=== PATIENT | male | born 1955 | race African-American/Black ===

== ENCOUNTER 2016-05-09 11:13 | Inpatient (IN) | payer OTHER ==
[2016-05-09 13:12] VITALS: BMI 27.4
--- NOTE | 2016-05-09 14:46 | HP ---
CIWA Score - CIWA Score Nausea/Vomitin Muscle Tremors: 3 Anxiety: 3 Agitation: 3 Paroxysmal Sweats: 1-Minimal Palms Moist Orientation: 0-Oriented Tacttile Disturbances: 2-Mild Itch/Numbness/Burn Auditory Disturbances: 2-Mild Harshness/Frighten Visual Disturbances: 2-Mild Sensitivity Headache: 2-Mild CIWA-Ar Total Score: 21 Admission ROS BHS - HPI Chief Complaint: i need help to stop drinking alcohol,cocaine and k2 Allergies/Adverse Reactions: Allergies Allergy/AdvReac Type Severity Reaction Status Date / Time No Known Allergies Allergy Verified 09/21/15 12:29 History of Present Illness: this 61 years old male with alcohol,cocaine and k2 dependence,withdrawal symptom ,last detox [facility] 09/17/15 t0 09/21/15 syncope alcohol dependence nicotine dependence hypertension depression ambulation with walker copd longest period of sobriety 2 years Exam Limitations: No Limitations - Ebola screening Have you traveled outside of the country in the last 21 days: No Have you been sick,other than usual withdrawal symptoms: No - Review of Systems Constitutional: Loss of Appetite, Malaise, Night Sweats, Changes in sleep, Weakness EENT: reports: No Symptoms Reported Respiratory: reports: No Symptoms reported, Other (copd) Cardiac: reports: No Symptoms Reported GI: reports: Nausea, Vomiting, Abdominal cramping : reports: No Symptoms Reported Musculoskeletal: reports: Back Pain, Muscle Pain Integumentary: reports: Dryness Neuro: reports: Headache, Tremors Endocrine: reports: No Symptoms Reported Hematology: reports: No Symptoms Reported Psychiatric: reports: Anxious, Depressed Patient History - Patient Medical History Hx Anemia: No Hx Asthma: Yes Hx Chronic Obstructive Pulmonary Disease (COPD): Yes (on albuteril inhaler) Hx Cancer: No Hx Cardiac Disorders: No Hx Hypertension: Yes (on med) Hx Hypercholesterolemia: No Hx Pacemaker: No HX Cerebrovascular Accident: No Hx Seizures: No Hx Diabetes: No Hx Gastrointestinal Disorders: No Hx Liver Disease: No Hx Genitourinary Disorders: No Hx Sexually Transmitted Disorders: Yes (1979 and completed tx) Hx Renal Disease (ESRD): No Hx Thyroid Disease: No Hx Human Immunodeficiency Virus (HIV): No (NEGATIVE HX last 2013 ) Hx Hepatitis C: No Hx Depression: Yes (on med) Hx Suicide Attempt: No Hx Bipolar Disorder: No Hx Schizophrenia: No Other Medical History: no suicidal,no homicidal,ambulation with walker - Patient Surgical History Past Surgical History: Yes Hx Neurologic Surgery: No Hx Cataract Extraction: No Hx Cardiac Surgery: No Hx Lung Surgery: No Hx Breast Surgery: No Hx Breast Biopsy: No Hx Abdominal Surgery: No Hx Appendectomy: No Hx Cholecystectomy: No Hx Genitourinary Surgery: No Hx Section: No Hx Orthopedic Surgery: Yes (right ankle surgery 1979) Anesthesia Reaction: No - PPD History Previous Implant?: Yes Documented Results: Positive w/o proof Results: CXR TBD PPD to be Administered?: No - Smoking Cessation Smoking history: Current every day smoker Have you smoked in the past 12 months: Yes Aproximately how many cigarettes per day: 6 Cigars Per Day: 0 Hx Chewing Tobacco Use: No Initiated information on smoking cessation: Yes 'Breaking Loose' booklet given: 05/09/16 - Substance & Tx. History Hx Alcohol Use: Yes Hx Substance Use: Yes Substance Use Type: Alcohol, Cocaine Hx Substance Use Treatment: Yes ([facility] 09/17/15 to 09/21/15) - Substances Abused Alcohol Route: Oral Frequency: Daily Amount used: Beer 1-pk, Vodka - 2 pts Age of first use: 9 Date of Last Use: 05/09/16 K-2 Frequency: Daily Amount used: 5-6 joints Age of first use: 58 Date of Last Use: 05/09/16 Cocaine Route: Smoking Frequency: 1-3 times last 30 days Amount used: 50$ Age of first use: 48 Date of Last Use: 05/07/16 Family Disease History - Family Disease History Family Disease History: Other: Father (alcohol,), Mother ( alcohol.) Admission Physical Exam [facility] - Vital Signs Vital Signs: Vital Signs - 24 hr 05/09/16 13:07 Temperature 97.5 F L Pulse Rate 89 Respiratory 18 Rate Blood Pressure 162/89 - Physical General Appearance: Yes: Moderate Distress, Tremorous, Irritable, Anxious HEENTM: Yes: Nasal Congestion Respiratory: Yes: Lungs Clear Neck: Yes: Within Normal Limits Breast: Yes: Within Normal Limits Cardiology: Yes: Within Normal Limits, Regular Rhythm, Regular Rate, S1, S2 Abdominal: Yes: Within Normal Limits, Normal Bowel Sounds, Non Tender, Flat, Soft Genitourinary: Yes: Within Normal Limits Back: Yes: Muscle Spasm Musculoskeletal: Yes: Back pain, Muscle Pain Extremities: Yes: Tremors Neurological: Yes: supervisor fabrication II-XII NML intact, Fully Oriented, Alert, Motor Strength 5/5 Integumentary: Yes: Dry Lymphatic: Yes: Within Normal Limits Cleared for Admission [facility] - Detox or Rehab [facility] Level of Care: Medically Managed Detox Regimen/Protocol: Librium [facility] Breath Alcohol Content Breath Alcohol Content: 0 Urine Drug Screen - Results Drug Screen Negative: No Urine Drug Screen Results: TABATHA-Cocaine
[2016-05-09] MEDS ORDERED: ALBUTEROL SO4 6.7 GM HFA INHALER IH PRN (15:11)
[2016-05-09] MEDS ORDERED: MAGNESIUM CITRATE 300 ML BOTTLE PO PRN (15:55)
[2016-05-09] MEDS ORDERED: hydrOXYzine PAMOATE 50 MG CAPSULE (FP) PO PRN (15:55)
[2016-05-09] MEDS ORDERED: ACETAMINOPHEN 325 MG TABLET (FP) PO PRN (15:55)
[2016-05-09] MEDS ORDERED: MENTHOL/PHENOL 1 EACH UD MM PRN (15:55)
[2016-05-09] MEDS ORDERED: MAG HYDROX/AL HYDROX/SIMETH 30 ML UNIT-DOSE CUP PO PRN (15:55)
[2016-05-09] MEDS ORDERED: chlordiazePOXIDE HCL 25 MG CAPSULE PO PRN (15:55)
[2016-05-09] MEDS ORDERED: MAGNESIUM HYDROX 2400MG/30ML ORAL SUSPENSION 30 ML CUP PO PRN (15:55)
[2016-05-09] MEDS ORDERED: P-EPHED 60MG/TRIPROLIDI 2.5MG TABLET PO PRN (15:55)
[2016-05-09] MEDS ORDERED: NICOTINE POLACRILEX 4 MG GUM BUC PRN (15:55)
[2016-05-09] MEDS ORDERED: LOPERAMIDE HCL 2 MG CAPSULE PO PRN (15:55)
[2016-05-09] MEDS ORDERED: chlordiazePOXIDE HCL 25 MG CAPSULE PO ONE (17:45)
[2016-05-09] MEDS: chlordiazePOXIDE HCL 25 MG CAPSULE PO SCH ×2 (18:13→22:44)
--- NOTE | 2016-05-09 18:48 | PN ---
S Progress Note Note: RECEIVED PHARMACY CALL PATIENT DOES NOT HAVE NIFEDIPINE OF HIS OWN CHANGE TO MILI'S NIFEDIPINE 60 MG CONTINUE DETOX
[2016-05-09] MEDS ORDERED: cloNIDine HCL 0.1 MG TABLET PO PRN (18:50)
[2016-05-09] MEDS: ATORVASTATIN CA 40 MG TABLET (FP) PO SCH (22:43)
[2016-05-09] MEDS: THIAMINE HCL 100 MG TABLET (FP) PO SCH (22:43)
[2016-05-09] MEDS: diphenhydrAMINE HCL 50 MG CAPSULE PO PRN (22:43)
--- NOTE | 2016-05-09 22:44 | PN ---
BHS Progress Note Note: RECEIVED NURSE CALL AMLODOPIN CAN NOT COEXIST WITH NIFEDIPINE HOLD AMLODOPIN BEGIN NIFEDIPINE
[2016-05-09 22:53] LABS: URINE APPEARANCE CLEAR; URINE BILIRUBIN NEGATIVE (NEGATIVE); URINE BLOOD NEGATIVE (NEGATIVE); URINE COLOR YELLOW; URINE GLUCOSE (UA) 1+ (NEGATIVE); URINE KETONE NEGATIVE (NEGATIVE); URINE LEUK ESTERASE NEGATIVE (NEGATIVE); URINE NITRITE NEGATIVE (NEGATIVE); URINE UROBILINOGEN NEGATIVE E.U./dl (0.2-1.0)
[2016-05-09 22:58] LABS: URINE PROTEIN 2+ (NEGATIVE)
[2016-05-09 23:00] LABS: URINE BACTERIA RARE /hpf (NONE SEEN); URINE HYALINE CAST 2 /lpf; URINE MUCUS RARE; URINE RBC 9 /hpf (0-3); URINE WBC 1 /hpf (3-5)
[2016-05-10] MEDS: chlordiazePOXIDE HCL 25 MG CAPSULE PO SCH ×4 (05:36→22:25)
[2016-05-10] MEDS ORDERED: NIFEdipine E.R 60 MG TABLET (UD) PO SCH (10:00)
[2016-05-10] MEDS ORDERED: PATIENT'S OWN MEDICATION (NON-FORMULARY) (Nifedipine [Nifedical Xl] 60 MG) PO SCH (10:00)
[2016-05-10] MEDS ORDERED: amLODIPine BESYLATE 10 MG TABLET (FP) PO SCH (10:00)
[2016-05-10] MEDS: HYDROCHLOROTHIAZIDE 25 MG TABLET (FP) PO SCH (10:41)
[2016-05-10] MEDS: PRENATAL VITAMINS W/ FOLIC ACID TABLET (FP) PO SCH (10:41)
[2016-05-10] MEDS: ASPIRIN 81 MG CHEWABLE TABLETS PO SCH (10:41)
[2016-05-10] MEDS: NICOTINE 21 MG/24 HOURS TOPICAL PATCH TD SCH (10:41)
[2016-05-10 10:52] LABS: MCH 24.6 pg (25.7-33.7); MCHC 31.1 g/dl (32.0-35.9); MEAN CELL VOLUME 79.2 fl (80-96); MEAN PLT VOLUME 10.7 fl (7.5-11.1); PLATELET COUNT 191 K/MM3 (134-434); RDW 16.2 % (11.9-15.9)
[2016-05-10 10:53] LABS: ALBUMIN 3.9 g/dl (3.4-5.0); CALCIUM 9.4 mg/dL (8.5-10.1); CREATININE 2.6 mg/dL (0.7-1.3)
[2016-05-10 10:54] LABS: BILIRUBIN,TOTAL 0.5 mg/dL (0.2-1.0); TOT PROT 8.4 g/dl (6.4-8.2)
--- NOTE | 2016-05-10 11:16 | CONSULT ---
[facility] Psychiatric Consult - Data Date of interview: 05/10/16 Admission source: [facility] Identifying data: New admission to [facility] for this 61 y/o AA male seeking detox treatment on for alcohol,cocaine (crack) and marijuana (K2) dependence.Patient is single,a father of two,homeless,unemployed and supported on Public Assistance. Substance Abuse History: - Smoking Cessation. Smoking history: Current every day smoker. Have you smoked in the past 12 months: Yes. Aproximately how many cigarettes per day: 6. Cigars Per Day: 0. Hx Chewing Tobacco Use: No. Initiated information on smoking cessation: Yes. 'Breaking Loose' booklet given : 05/09/16. - Substance & Tx. History. Hx Alcohol Use: Yes. Hx Substance Use : Yes. Substance Use Type: Alcohol, Cocaine. Hx Substance Use Treatment: Yes ( [facility] 09/17/15 to 09/21/15). - Substances Abused. Alcohol. Route: Oral. Frequency: Daily. Amount used: Beer 1-pk, Vodka - 2 pts. Age of first use: 9. Date of Last Use: 05/09/16. K-2. Frequency: Daily. Amount used: 5-6 joints. Age of first use: 58. Date of Last Use: 05/09/16. Cocaine. Route : Smoking. Frequency: 1-3 times last 30 days. Amount used: 50$. Age of first use: 48. Date of Last Use: 05/07/16. Discussed in this session.Patient confirms this pattern of substance abuse. Medical History: Bronchial asthma,HTN,COPD,past history of fracture of right ankle/injury to left knee (uses a rollator for ambulation) and treatment for syphilis (1979). Psychiatric History: Patient denies history of psychiatric hospitalizations.He reports past treatment with antidepressants (citalopram/trazodone) and he endorses the diagnosis of MDD.Mr Mayorga states that he does not see a psychiatrist as he has elected to rely on his primary care physician for refills of medications.He was discharged from [address] rehabilitation unit in October 2015 on trazodone 1000 mg/hs but it appears that the patient did not follow through with his aftercare arrangements.No reported history of suicide attempts. Physical/Sexual Abuse/Trauma History: Patient denies. Additional Comment: Urine Drug Screen Results: TABATHA-Cocaine.Noted. Mental Status Exam - Mental Status Exam Alert and Oriented to: Time, Place, Person Cognitive Function: Grossly Intact Patient Appearance: Well Groomed Mood: Withdrawn, Anxious Affect: Mood Congruent Patient Behavior: Fatigued, Talkative, Appropriate, Cooperative Speech Pattern: Clear Voice Loudness: Normal Thought Process: Goal Oriented Thought Disorder: Not Present Hallucinations: Denies Suicidal Ideation: Denies Homicidal Ideation: Denies Insight/Judgement: Poor Sleep: Poorly, Difficulty falling asleep Appetite: Fair Gait/Station: Other (moves around with a rollator) Psychiatric Findings - Problem List ([place] 1, 2,3) (1) Alcohol dependence with uncomplicated withdrawal Current Visit: Yes Status: Acute (2) Cannabis dependence Current Visit: Yes Status: Acute (3) Nicotine dependence Current Visit: Yes Status: Acute Qualifiers: Nicotine product type: cigarettes Substance use status: uncomplicated Qualified Code(s): F17.210 - Nicotine dependence, cigarettes, uncomplicated (4) Cocaine dependence Current Visit: Yes Status: Acute (5) Substance induced mood disorder Current Visit: Yes Status: Acute (6) Substance-induced sleep disorder Current Visit: Yes Status: Acute (7) Depressive disorder Current Visit: Yes Status: Chronic (8) Positive PPD, treated Current Visit: Yes Status: Chronic (9) Asthma Current Visit: Yes Status: Chronic Qualifiers: Asthma severity: mild intermittent Asthma complication type: uncomplicated Qualified Code(s): J45.20 - Mild intermittent asthma, uncomplicated (10) COPD (chronic obstructive pulmonary disease) Current Visit: Yes Status: Chronic Qualifiers: COPD type: emphysema (11) HTN (hypertension) Current Visit: Yes Status: Chronic Qualifiers: Hypertension type: essential hypertension Qualified Code(s): I10 - Essential (primary) hypertension - Initial Treatment Plan Initial Treatment Plan: Psychoeducation.Detoxification.Medications : trazodone 50 mg po hs.Side effects/benefits discussed with the patient.He is made aware of the risk of priapism and he is instructed to stop taking that drug/seek immediate medical attention if occurrence of erectile abnormalities (painful/ prolonged erection).Patient aknowledges understanding of information and he agrees to follow this plan of care.Observation.Fall precautions.
--- NOTE | 2016-05-10 12:00 | PN ---
S CIWA - CIWA Score Nausea/Vomitin Muscle Tremors: 4-Moderate,w/Arms Extend Anxiety: 4-Mod. Anxious/Guarded Agitation: 4-Moderately Restless Paroxysmal Sweats: 3 Orientation: 0-Oriented Tacttile Disturbances: 1-Very Mild Itch/Numbness Auditory Disturbances: 0-None Visual Disturbances: 0-None Headache: 1-Very Mild CIWA-Ar Total Score: 20 BHS Progress Note (SOAP) Subjective: nausea, sweats, interrupted sleep, anxiety, tremors Objective: 05/10/16 11:59 Vital Signs - 8 hr 05/10/16 06:44 Temperature 96.9 F L Pulse Rate 80 Respiratory 18 Rate Blood Pressure 177/111 Vital Signs - 24 hr 05/09/16 05/09/16 05/10/16 13:07 23:16 00:30 Temperature 97.5 F L 97.7 F Pulse Rate 89 84 Respiratory 18 18 20 Rate Blood Pressure 162/89 157/111 05/10/16 05/10/16 03:30 06:44 Temperature 96.9 F L Pulse Rate 80 Respiratory 20 18 Rate Blood Pressure 177/111 elevated bp Laboratory Tests 05/09/16 05/10/16 05/10/16 22:02 06:00 06:00 WBC 10.0 D RBC 5.31 Hgb 13.1 D Hct 42.0 MCV 79.2 L MCHC 31.1 L RDW 16.2 H Plt Count 191 MPV 10.7 D Sodium 140 Potassium 3.6 Chloride 102 Carbon Dioxide 27 Anion Gap 11 BUN 33 H Creatinine 2.6 H D Creat Clearance w eGFR 25.14 Random Glucose 138 H D Calcium 9.4 Total Bilirubin 0.5 D AST 19 ALT 20 D Alkaline Phosphatase 103 Total Protein 8.4 H D Albumin 3.9 D Urine Color Yellow Urine Appearance Clear Urine pH 6.0 Ur Specific [place] 1.020 Urine Protein 2+ H Urine Glucose (UA) 1+ H Urine Ketones Negative Urine Blood Negative Urine Nitrite Negative Urine Bilirubin Negative Urine Urobilinogen Negative Ur Leukocyte Esterase Negative Urine RBC 9 Urine WBC 1 Ur Epithelial Cells Rare Urine Bacteria Rare Hyaline Casts 2 Urine Mucus Rare Assessment: 05/10/16 11:59 withdrawal sx, hypertension Plan: cont detox, prn libirum, low salt diet lfuids, start antihypertensives to better control bp
[2016-05-10] MEDS ORDERED: cloNIDine HCL 0.1 MG TABLET PO ONE (12:02)
[2016-05-10] MEDS ORDERED: chlordiazePOXIDE HCL 25 MG CAPSULE PO ONE (13:00)
[2016-05-10] MEDS ORDERED: cloNIDine HCL 0.1 MG TABLET ONE (14:26)
[2016-05-10] MEDS: NIFEdipine E.R 60 MG TABLET (UD) PO SCH (14:36)
--- NOTE | 2016-05-10 18:46 | EKG ---
Test Reason : Blood Pressure : / mmHG Vent. Rate : 087 BPM Atrial Rate : 087 BPM P-R Int : 168 ms QRS Dur : 112 ms QT Int : 398 ms P-R-T Axes : 072 -69 -33 degrees QTc Int : 478 ms POOR DATA QUALITY, INTERPRETATION MAY BE ADVERSELY AFFECTED NORMAL SINUS RHYTHM LEFT AXIS DEVIATION NON-SPECIFIC INTRA-VENTRICULAR CONDUCTION DELAY ANTEROSEPTAL INFARCT , AGE UNDETERMINED NONSPECIFIC ST AND T WAVE ABNORMALITY ABNORMAL ECG NO PREVIOUS ECGS AVAILABLE Confirmed by LAURA MILLER, ADI ([id number]) on 05/10/2016 6:46:01 PM Referred By: Gregorio Nunez Confirmed By:ADI SANCHEZ MD
[2016-05-10] MEDS: THIAMINE HCL 100 MG TABLET (FP) PO SCH (22:25)
[2016-05-10] MEDS: traZODone HCL 50 MG TABLET (FP) PO SCH (22:25)
[2016-05-10] MEDS: ATORVASTATIN CA 40 MG TABLET (FP) PO SCH (22:25)
[2016-05-11] MEDS: chlordiazePOXIDE HCL 25 MG CAPSULE PO SCH ×3 (06:00→10:28)
[2016-05-11] MEDS: IBUPROFEN 400 MG TABLET (FP) PO PRN (06:45)
[2016-05-11] MEDS: ASPIRIN 81 MG CHEWABLE TABLETS PO SCH (10:27)
[2016-05-11] MEDS: HYDROCHLOROTHIAZIDE 25 MG TABLET (FP) PO SCH (10:27)
[2016-05-11] MEDS: NIFEdipine E.R 60 MG TABLET (UD) PO SCH (10:28)
[2016-05-11] MEDS: NICOTINE 21 MG/24 HOURS TOPICAL PATCH TD SCH (10:28)
[2016-05-11] MEDS: PRENATAL VITAMINS W/ FOLIC ACID TABLET (FP) PO SCH (10:28)
--- NOTE | 2016-05-11 15:30 | PN ---
S CIWA - CIWA Score Nausea/Vomitin-Mild Nausea/No Vomiting Muscle Tremors: 3 Anxiety: 4-Mod. Anxious/Guarded Agitation: 4-Moderately Restless Paroxysmal Sweats: No Perspiration Orientation: 0-Oriented Tacttile Disturbances: 1-Very Mild Itch/Numbness Auditory Disturbances: 0-None Visual Disturbances: 0-None Headache: 2-Mild CIWA-Ar Total Score: 15 BHS Progress Note (SOAP) Subjective: Stomach cramps, diarrhea, nausea, sweating, anxious, interrupted sleep, tremor Objective: 05/11/16 15:27 Last Vital Signs Temp Pulse Resp BP Pulse Ox 96.1 F L 84 18 133/98 05/11/16 09:43 05/11/16 09:43 05/11/16 09:43 05/11/16 09:43 Laboratory Tests 05/09/16 05/10/16 05/10/16 22:02 06:00 06:00 WBC 10.0 D RBC 5.31 Hgb 13.1 D Hct 42.0 MCV 79.2 L MCHC 31.1 L RDW 16.2 H Plt Count 191 MPV 10.7 D Sodium 140 Potassium 3.6 Chloride 102 Carbon Dioxide 27 Anion Gap 11 BUN 33 H Creatinine 2.6 H D Creat Clearance w eGFR 25.14 Random Glucose 138 H D Calcium 9.4 Total Bilirubin 0.5 D AST 19 ALT 20 D Alkaline Phosphatase 103 Total Protein 8.4 H D Albumin 3.9 D Urine Color Yellow Urine Appearance Clear Urine pH 6.0 Ur Specific [place] 1.020 Urine Protein 2+ H Urine Glucose (UA) 1+ H Urine Ketones Negative Urine Blood Negative Urine Nitrite Negative Urine Bilirubin Negative Urine Urobilinogen Negative Ur Leukocyte Esterase Negative Urine RBC 9 Urine WBC 1 Ur Epithelial Cells Rare Urine Bacteria Rare Hyaline Casts 2 Urine Mucus Rare RPR Titer 05/10/16 06:00 WBC RBC Hgb Hct MCV MCHC RDW Plt Count MPV Sodium Potassium Chloride Carbon Dioxide Anion Gap BUN Creatinine Creat Clearance w eGFR Random Glucose Calcium Total Bilirubin AST ALT Alkaline Phosphatase Total Protein Albumin Urine Color Urine Appearance Urine pH Ur Specific [place] Urine Protein Urine Glucose (UA) Urine Ketones Urine Blood Urine Nitrite Urine Bilirubin Urine Urobilinogen Ur Leukocyte Esterase Urine RBC Urine WBC Ur Epithelial Cells Urine Bacteria Hyaline Casts Urine Mucus RPR Titer Nonreactive Labs noted: Abnormal UA (1+ Glucose and 2+ protein) Assessment: 05/11/16 15:29 Withdrawal symptoms Noted with Glycosuria and proteinuria Plan: Continue detox Glycosuria: encouraged to drink more water, repeat BMP and UA, consider finger stick glucose ac meal and initiate oral antidiabetic if warranted Proteinuria: encouraged to drink more water, repeat UA
[2016-05-11] MEDS: chlordiazePOXIDE 5 MG CAPSULE PO SCH ×2 (17:21→22:38)
[2016-05-11] MEDS: traZODone HCL 50 MG TABLET (FP) PO SCH (22:38)
[2016-05-11] MEDS: THIAMINE HCL 100 MG TABLET (FP) PO SCH (22:38)
[2016-05-11] MEDS: ATORVASTATIN CA 40 MG TABLET (FP) PO SCH (22:38)
[2016-05-12] MEDS: IBUPROFEN 400 MG TABLET (FP) PO PRN (05:48)
[2016-05-12] MEDS: chlordiazePOXIDE 5 MG CAPSULE PO SCH ×2 (05:49→10:21)
[2016-05-12] MEDS: guaiFENesin/D-METHORPHAN HB 10 ML UNIT-DOSE CUPS PO PRN (05:51)
[2016-05-12 10:15] LABS: CREATININE 2.9 mg/dL (0.7-1.3)
[2016-05-12] MEDS: HYDROCHLOROTHIAZIDE 25 MG TABLET (FP) PO SCH (10:21)
[2016-05-12] MEDS: NIFEdipine E.R 60 MG TABLET (UD) PO SCH (10:21)
[2016-05-12] MEDS: ASPIRIN 81 MG CHEWABLE TABLETS PO SCH (10:21)
[2016-05-12] MEDS: PRENATAL VITAMINS W/ FOLIC ACID TABLET (FP) PO SCH (10:22)
[2016-05-12] MEDS: NICOTINE 21 MG/24 HOURS TOPICAL PATCH TD SCH (10:22)
--- NOTE | 2016-05-12 11:32 | PN ---
BHS Progress Note (SOAP) Subjective: TREMORS, ANXIETY,SWEATS, DECREASED NAUSEA. Objective: 05/12/16 11:31 Vital Signs Temperature 96.1 F L 05/12/16 10:58 Pulse Rate 75 05/12/16 10:58 Respiratory Rate 18 05/12/16 10:58 Blood Pressure 136/92 05/12/16 10:58 O2 Sat by Pulse Oximetry (%) Laboratory Last Values WBC 10.0 K/mm3 (4.0-10.0) D 05/10/16 06:00 RBC 5.31 M/mm3 (4.00-5.60) 05/10/16 06:00 Hgb 13.1 GM/dL (11.7-16.9) D 05/10/16 06:00 Hct 42.0 % (35.4-49) 05/10/16 06:00 MCV 79.2 fl (80-96) L 05/10/16 06:00 MCHC 31.1 g/dl (32.0-35.9) L 05/10/16 06:00 RDW 16.2 % (11.9-15.9) H 05/10/16 06:00 Plt Count 191 K/MM3 (134-434) 05/10/16 06:00 MPV 10.7 fl (7.5-11.1) D 05/10/16 06:00 Sodium 137 mmol/L (136-145) 05/12/16 07:00 Potassium 3.8 mmol/L (3.5-5.1) 05/12/16 07:00 Chloride 97 mmol/L (98-107) L 05/12/16 07:00 Carbon Dioxide 29 mmol/L (21-32) 05/12/16 07:00 Anion Gap 11 (8-16) 05/12/16 07:00 BUN 38 mg/dL (7-18) H 05/12/16 07:00 Creatinine 2.9 mg/dL (0.7-1.3) H 05/12/16 07:00 Creat Clearance w eGFR 25.14 (>60) 05/10/16 06:00 Random Glucose 146 mg/dL (74-106) H 05/12/16 07:00 Hemoglobin A1c % 6.0 % (4.8-6.0) 05/12/16 07:00 Calcium 9.0 mg/dL (8.5-10.1) 05/12/16 07:00 Total Bilirubin 0.5 mg/dL (0.2-1.0) D 05/10/16 06:00 AST 19 U/L (15-37) 05/10/16 06:00 ALT 20 U/L (12-78) D 05/10/16 06:00 Alkaline Phosphatase 103 U/L (45-117) 05/10/16 06:00 Total Protein 8.4 g/dl (6.4-8.2) H D 05/10/16 06:00 Albumin 3.9 g/dl (3.4-5.0) D 05/10/16 06:00 Urine Color Yellow 05/09/16 22:02 Urine Appearance Clear 05/09/16 22:02 Urine pH 6.0 (5.0-8.0) 05/09/16 22:02 Ur Specific [place] 1.020 (1.001-1.035) 05/09/16 22:02 Urine Protein 2+ (NEGATIVE) H 05/09/16 22:02 Urine Glucose (UA) 1+ (NEGATIVE) H 05/09/16 22:02 Urine Ketones Negative (NEGATIVE) 05/09/16 22:02 Urine Blood Negative (NEGATIVE) 05/09/16 22:02 Urine Nitrite Negative (NEGATIVE) 05/09/16 22:02 Urine Bilirubin Negative (NEGATIVE) 05/09/16 22:02 Urine Urobilinogen Negative E.U./dl (0.2-1.0) 05/09/16 22:02 Ur Leukocyte Esterase Negative (NEGATIVE) 05/09/16 22:02 Urine RBC 9 /hpf (0-3) 05/09/16 22:02 Urine WBC 1 /hpf (3-5) 05/09/16 22:02 Ur Epithelial Cells Rare /hpf (FEW) 05/09/16 22:02 Urine Bacteria Rare /hpf (NONE SEEN) 05/09/16 22:02 Hyaline Casts 2 /lpf 05/09/16 22:02 Urine Mucus Rare 05/09/16 22:02 RPR Titer Nonreactive (NONREACTIVE) 05/10/16 06:00 Assessment: 05/12/16 11:31 WITHDRAWAL SX Plan: CONTINUE DETOX
--- NOTE | 2016-05-12 15:50 | PN ---
S Progress Note Note: CALLED TO SEE THIS PT FOR C/O FALL. PT IN REST AREA NEAR DAY ROOM WATCHING TV. PT STATES "I WAS JUST REACHING OUT FOR SALT PACKAGE ON THE FLOOR AND I SLIPPED OUT THE CHAIR ON MY RIGHT SIDE". PT DENIES ANY PAIN OR INJURY. ALERT O X 3. IN NO ACUTE DISTRESS. Vital Signs Temperature 96.6 F L 05/12/16 13:33 Pulse Rate 71 05/12/16 13:33 Respiratory Rate 18 05/12/16 13:33 Blood Pressure 125/81 05/12/16 13:33 O2 Sat by Pulse Oximetry (%) PLAN: FALL PROTOCOL #2
[2016-05-12 17:16] LABS: URINE APPEARANCE CLEAR; URINE BILIRUBIN NEGATIVE (NEGATIVE); URINE BLOOD NEGATIVE (NEGATIVE); URINE COLOR YELLOW; URINE GLUCOSE (UA) NEGATIVE (NEGATIVE); URINE KETONE NEGATIVE (NEGATIVE); URINE LEUK ESTERASE NEGATIVE (NEGATIVE); URINE NITRITE NEGATIVE (NEGATIVE); URINE UROBILINOGEN NEGATIVE E.U./dl (0.2-1.0)
[2016-05-12 17:21] LABS: URINE PROTEIN 1+ (NEGATIVE)
[2016-05-12] MEDS: chlordiazePOXIDE HCL 10 MG CAPSULE PO SCH ×2 (17:21→22:31)
[2016-05-12 18:16] LABS: URINE HYALINE CAST 9 /lpf; URINE MUCUS RARE; URINE RBC 1 /hpf (0-3); URINE WBC 1 /hpf (3-5)
[2016-05-12] MEDS: traZODone HCL 50 MG TABLET (FP) PO SCH (22:30)
[2016-05-12] MEDS: THIAMINE HCL 100 MG TABLET (FP) PO SCH (22:30)
[2016-05-12] MEDS: ATORVASTATIN CA 40 MG TABLET (FP) PO SCH (22:31)
[2016-05-12] MEDS: diphenhydrAMINE HCL 50 MG CAPSULE PO PRN (22:32)
[2016-05-13] MEDS: chlordiazePOXIDE HCL 10 MG CAPSULE PO SCH ×2 (05:41→10:19)
[2016-05-13] MEDS: guaiFENesin/D-METHORPHAN HB 10 ML UNIT-DOSE CUPS PO PRN (06:35)
[2016-05-13] MEDS: HYDROCHLOROTHIAZIDE 25 MG TABLET (FP) PO SCH (10:17)
[2016-05-13] MEDS: NIFEdipine E.R 60 MG TABLET (UD) PO SCH (10:17)
[2016-05-13] MEDS: ASPIRIN 81 MG CHEWABLE TABLETS PO SCH (10:17)
[2016-05-13] MEDS: PRENATAL VITAMINS W/ FOLIC ACID TABLET (FP) PO SCH (10:17)
[2016-05-13] MEDS: NICOTINE 21 MG/24 HOURS TOPICAL PATCH TD SCH (10:18)
[2016-05-13 10:40] VITALS: PULSE 73
--- NOTE | 2016-05-13 11:21 | DS ---
[facility] Detox Discharge Summary Admission Date: 05/09/16 Discharge Date: 05/13/16 - History Present History: Alcohol Dependence, Cannabis Dependence, Cocaine Dependence Additional Comments: DETOX COMPLETED. PT INSTRUCTED TO FOLLOW UP WITH HIS PMD AT [facility] FOR MEDICAL MANAGEMENT OF HIS COMORBID CONDITIONS. STATES HAS HIS OWN MEDS. Pertinent Past History: ASTHMA HTN HYPERLIPIDEMIA COPD USE OF WALKER AMBULATORY AID DEPRESSION - Physical Exam Results Vital Signs: Vital Signs Temperature 96.7 F L 05/13/16 10:39 Pulse Rate 73 05/13/16 10:39 Respiratory Rate 18 05/13/16 10:39 Blood Pressure 142/91 05/13/16 10:39 O2 Sat by Pulse Oximetry (%) Pertinent Admission Physical Exam Findings: WITHDRAWAL SX Laboratory Last Values WBC 10.0 K/mm3 (4.0-10.0) D 05/10/16 06:00 RBC 5.31 M/mm3 (4.00-5.60) 05/10/16 06:00 Hgb 13.1 GM/dL (11.7-16.9) D 05/10/16 06:00 Hct 42.0 % (35.4-49) 05/10/16 06:00 MCV 79.2 fl (80-96) L 05/10/16 06:00 MCHC 31.1 g/dl (32.0-35.9) L 05/10/16 06:00 RDW 16.2 % (11.9-15.9) H 05/10/16 06:00 Plt Count 191 K/MM3 (134-434) 05/10/16 06:00 MPV 10.7 fl (7.5-11.1) D 05/10/16 06:00 Sodium 137 mmol/L (136-145) 05/12/16 07:00 Potassium 3.8 mmol/L (3.5-5.1) 05/12/16 07:00 Chloride 97 mmol/L (98-107) L 05/12/16 07:00 Carbon Dioxide 29 mmol/L (21-32) 05/12/16 07:00 Anion Gap 11 (8-16) 05/12/16 07:00 BUN 38 mg/dL (7-18) H 05/12/16 07:00 Creatinine 2.9 mg/dL (0.7-1.3) H 05/12/16 07:00 Creat Clearance w eGFR 25.14 (>60) 05/10/16 06:00 Random Glucose 146 mg/dL (74-106) H 05/12/16 07:00 Hemoglobin A1c % 6.0 % (4.8-6.0) 05/12/16 07:00 Calcium 9.0 mg/dL (8.5-10.1) 05/12/16 07:00 Total Bilirubin 0.5 mg/dL (0.2-1.0) D 05/10/16 06:00 AST 19 U/L (15-37) 05/10/16 06:00 ALT 20 U/L (12-78) D 05/10/16 06:00 Alkaline Phosphatase 103 U/L (45-117) 05/10/16 06:00 Total Protein 8.4 g/dl (6.4-8.2) H D 05/10/16 06:00 Albumin 3.9 g/dl (3.4-5.0) D 05/10/16 06:00 Urine Color Yellow 05/12/16 14:32 Urine Appearance Clear 05/12/16 14:32 Urine pH 5.0 (5.0-8.0) 05/12/16 14:32 Ur Specific [place] 1.020 (1.001-1.035) 05/12/16 14:32 Urine Protein 1+ (NEGATIVE) H 05/12/16 14:32 Urine Glucose (UA) Negative (NEGATIVE) 05/12/16 14:32 Urine Ketones Negative (NEGATIVE) 05/12/16 14:32 Urine Blood Negative (NEGATIVE) 05/12/16 14:32 Urine Nitrite Negative (NEGATIVE) 05/12/16 14:32 Urine Bilirubin Negative (NEGATIVE) 05/12/16 14:32 Urine Urobilinogen Negative E.U./dl (0.2-1.0) 05/12/16 14:32 Ur Leukocyte Esterase Negative (NEGATIVE) 05/12/16 14:32 Urine RBC 1 /hpf (0-3) 05/12/16 14:32 Urine WBC 1 /hpf (3-5) 05/12/16 14:32 Ur Epithelial Cells Rare /hpf (FEW) 05/12/16 14:32 Urine Bacteria Rare /hpf (NONE SEEN) 05/09/16 22:02 Hyaline Casts 9 /lpf 05/12/16 14:32 Urine Mucus Rare 05/12/16 14:32 RPR Titer Nonreactive (NONREACTIVE) 05/10/16 06:00 - Treatment Hospital Course: Detox Protocol Followed, Detoxed Safely, Responded well, Discharged Condition Good - Medication Discharge Medications: Ambulatory Orders Albuterol Sulfate Inhaler - [Ventolin HFA Inhaler -] 2 inh PO Q4H PRN #1 inh 10/17 Amlodipine Besylate [Norvasc -] 10 mg PO DAILY #30 tablet 09/10/13 Hydrochlorothiazide [Hctz -] 25 mg PO DAILY #30 tablet 09/10/13 Trazodone HCl [Desyrel -] 100 mg PO HS #30 tablet 10/12/15 Aspirin [ASA -] 81 mg PO DAILY 05/09/16 Atorvastatin Ca [Lipitor] 40 mg PO HS 05/09/16 Folic Acid - 1 mg PO DAILY 05/09/16 Mirtazapine [Remeron -] 15 mg PO HS 05/09/16 Nifedipine [Nifedical Xl] 60 mg PO DAILY 05/09/16 Thiamine HCl [Vitamin B-1] 50 mg PO DAILY 05/09/16 Trazodone HCl [Desyrel -] 50 mg PO HS #30 tablet 05/10/16 - Diagnosis (1) Alcohol dependence with uncomplicated withdrawal Current Visit: Yes Status: Acute (2) Nicotine dependence Current Visit: Yes Status: Chronic Qualifiers: Nicotine product type: cigarettes Substance use status: uncomplicated Qualified Code(s): F17.210 - Nicotine dependence, cigarettes, uncomplicated (3) Asthma Current Visit: Yes Status: Chronic Qualifiers: Asthma severity: mild intermittent Asthma complication type: uncomplicated Qualified Code(s): J45.20 - Mild intermittent asthma, uncomplicated (4) COPD (chronic obstructive pulmonary disease) Current Visit: Yes Status: Chronic Qualifiers: COPD type: emphysema (5) HTN (hypertension) Current Visit: Yes Status: Chronic Qualifiers: Hypertension type: essential hypertension Qualified Code(s): I10 - Essential (primary) hypertension (6) Cocaine dependence Current Visit: Yes Status: Acute Qualifiers: Substance use status: uncomplicated Qualified Code(s): F14.20 - Cocaine dependence, uncomplicated (7) Substance induced mood disorder Current Visit: Yes Status: Acute (8) Substance-induced sleep disorder Current Visit: Yes Status: Acute - AMA Did Patient Leave Against Medical Advice: No
[2016-05-13 12:05] VITALS: BP 157/100; TEMP 98.1
== END 2016-05-13 14:10 | disposition home or self-care (01) | DRG 774 ==
LOC: YASAS 11:13 → Y3N 15:38
PROVIDERS: ADMIT Internal Medicine; ATTEND Internal Medicine
PROC: HZ2ZZZZ Detoxification Services for Substance Abuse Treatment (ICD-10-PCS; principal; 2016-05-13)
DX: F10.230 Alcohol dependence with withdrawal, uncomplicated (principal); F14.20 Cocaine dependence, uncomplicated; F17.210 Nicotine dependence, cigarettes, uncomplicated; F19.282 Other psychoactive substance dependence with psychoactive substance-induced sleep disorder; F32.9 Major depressive disorder, single episode, unspecified; I10 Essential (primary) hypertension; J45.20 Mild intermittent asthma, uncomplicated; J44.9 Chronic obstructive pulmonary disease, unspecified; R76.11 Nonspecific reaction to tuberculin skin test without active tuberculosis; F19.24 Other psychoactive substance dependence with psychoactive substance-induced mood disorder
CPT/HCPCS: 36415; 80048; 80053; 81003; 81015; 83036; 85027; 86593; 93005; 93010

== ENCOUNTER 2016-09-02 15:37 | Inpatient (IN) | payer OTHER ==
[2016-09-02 17:37] VITALS: BMI 26.7
[2016-09-02] MEDS ORDERED: MAG HYDROX/AL HYDROX/SIMETH 30 ML UNIT-DOSE CUP PO PRN (19:50)
[2016-09-02] MEDS ORDERED: MENTHOL/PHENOL 1 EACH UD MM PRN (19:50)
[2016-09-02] MEDS ORDERED: NICOTINE POLACRILEX 2 MG GUM BC PRN (19:50)
[2016-09-02] MEDS ORDERED: LOPERAMIDE HCL 2 MG CAPSULE PO PRN (19:50)
[2016-09-02] MEDS ORDERED: guaiFENesin/D-METHORPHAN HB 10 ML UNIT-DOSE CUPS PO PRN (19:50)
[2016-09-02] MEDS ORDERED: chlordiazePOXIDE HCL 25 MG CAPSULE PO PRN (19:50)
[2016-09-02] MEDS ORDERED: hydrOXYzine PAMOATE 50 MG CAPSULE (FP) PO PRN (19:50)
[2016-09-02] MEDS ORDERED: MAGNESIUM CITRATE 300 ML BOTTLE PO PRN (19:50)
[2016-09-02] MEDS ORDERED: diphenhydrAMINE HCL 50 MG CAPSULE PO PRN (19:50)
[2016-09-02] MEDS ORDERED: MAGNESIUM HYDROX 2400MG/30ML ORAL SUSPENSION 30 ML CUP PO PRN (19:50)
[2016-09-02] MEDS ORDERED: P-EPHED 60MG/TRIPROLIDI 2.5MG TABLET PO PRN (19:50)
--- NOTE | 2016-09-02 19:50 | HP ---
CIWA Score - CIWA Score Nausea/Vomitin-Mild Nausea/No Vomiting Muscle Tremors: 4-Moderate,w/Arms Extend Anxiety: 4-Mod. Anxious/Guarded Agitation: 4-Moderately Restless Paroxysmal Sweats: 1-Minimal Palms Moist Orientation: 3-Disoriented Date>2 days Tacttile Disturbances: 0-None Auditory Disturbances: 0-None Visual Disturbances: 0-None Headache: 0-None Present CIWA-Ar Total Score: 17 Admission ROS S - HPI Chief Complaint: WITHDRAWAL SX Allergies/Adverse Reactions: Allergies Allergy/AdvReac Type Severity Reaction Status Date / Time No Known Allergies Allergy Verified 09/02/16 19:04 History of Present Illness: 61 YEARS OLD MALE WITH LONG HISTORY OF ALCOHOL PCP NICOTINE DEPENDENCE HAS HYPERTENSION HYPERLIPIDEMIA ASTHMA POSITIVE PPD AND DEPRESSION IS ADMITTED TO DETOX Exam Limitations: No Limitations - Ebola screening Have you traveled outside of the country in the last 21 days: No Have you had contact with anyone from an Ebola affected area: No Have you been sick,other than usual withdrawal symptoms: No Do you have a fever: No - Review of Systems Constitutional: Chills, Changes in sleep, Weight Stable EENT: reports: No Symptoms Reported Respiratory: reports: SOB with Exertion Cardiac: reports: No Symptoms Reported GI: reports: Nausea, Poor Fluid Intake, Abdominal cramping : reports: No Symptoms Reported Musculoskeletal: reports: Muscle Weakness (RIGHT LEG) Integumentary: reports: No Symptoms Reported Neuro: reports: Tremors Endocrine: reports: No Symptoms Reported Hematology: reports: No Symptoms Reported Psychiatric: reports: Judgement Intact, Depressed Other Systems: Reviewed and Negative Patient History - Patient Medical History Hx Anemia: No Hx Asthma: Yes Hx Chronic Obstructive Pulmonary Disease (COPD): Yes (on albuteril inhaler) Hx Cancer: No Hx Cardiac Disorders: No Hx Congestive Heart Failure: No Hx Hypertension: Yes (on med) Hx Hypercholesterolemia: Yes Hx Pacemaker: No HX Cerebrovascular Accident: No Hx Seizures: No Hx Dementia: No Hx Diabetes: No Hx Gastrointestinal Disorders: No Hx Liver Disease: No Hx Genitourinary Disorders: No Hx Sexually Transmitted Disorders: Yes (1979 and completed tx) Hx Renal Disease (ESRD): No Hx Thyroid Disease: No Hx Human Immunodeficiency Virus (HIV): No (NEGATIVE HX last 2013 ) Hx Hepatitis C: No Hx Depression: Yes (on med) Hx Suicide Attempt: No Hx Bipolar Disorder: No Hx Schizophrenia: No - Patient Surgical History Past Surgical History: Yes Hx Neurologic Surgery: No Hx Cataract Extraction: No Hx Cardiac Surgery: No Hx Lung Surgery: No Hx Breast Surgery: No Hx Breast Biopsy: No Hx Abdominal Surgery: No Hx Appendectomy: No Hx Cholecystectomy: No Hx Genitourinary Surgery: No Hx Orthopedic Surgery: Yes (right ankle surgery 1979) Anesthesia Reaction: No - PPD History Previous Implant?: Yes Documented Results: Positive w/proof Implanted On Prior R Admission?: No Results: CXR TBD PPD to be Administered?: No - Smoking Cessation Smoking history: Current every day smoker Have you smoked in the past 12 months: Yes Aproximately how many cigarettes per day: 6 Cigars Per Day: 0 Hx Chewing Tobacco Use: No Initiated information on smoking cessation: Yes 'Breaking Loose' booklet given: 09/02/16 - Substance & Tx. History Hx Alcohol Use: Yes Hx Substance Use: Yes Substance Use Type: Alcohol (PCP) Hx Substance Use Treatment: Yes - Substances Abused Alcohol Route: Oral Frequency: Daily Amount used: LIQUOR- 2 PINTS, BEER- 1 SIX PACK Age of first use: 15 Date of Last Use: 09/02/16 Family Disease History - Family Disease History Family Disease History: Other: Father (alcohol,), Mother ( alcohol.) Admission Physical Exam S - Vital Signs Vital Signs: Vital Signs - 24 hr 09/02/16 17:34 Temperature 99.6 F Pulse Rate 86 Respiratory 18 Rate Blood Pressure 157/98 - Physical General Appearance: Yes: Appropriately Dressed, Mild Distress, Tremorous, Irritable, Sweating, Anxious HEENTM: Yes: Within Normal Limits, Hearing grossly Normal, Normocephalic, Normal Voice Respiratory: Yes: Chest Non-Tender, No Respiratory Distress, No Accessory Muscle Use, Wheezing, Hyperresonant Neck: Yes: Supple, Trachea in good position Breast: Yes: Breasts Symetrical Cardiology: Yes: Regular Rhythm, Regular Rate, S1, S2 Abdominal: Yes: Non Tender, Soft Genitourinary: Yes: Within Normal Limits Back: Yes: Normal Inspection Musculoskeletal: Yes: Gait Steady (WALKER), Muscle Pain (LEFT LEG), Muscle weakness (LEFT LEG) Extremities: Yes: Normal Inspection, Non-Tender, Tremors Neurological: Yes: Alert, Motor Strength 5/5, Normal Response, Depressed Affect Integumentary: Yes: Warm Lymphatic: Yes: Within Normal Limits - Diagnostic (1) Alcohol dependence with uncomplicated withdrawal Current Visit: Yes Status: Acute (2) Depression Current Visit: Yes Status: Suspected Qualifiers: Depression Type: dysthymia Qualified Code(s): F34.1 - Dysthymic disorder (3) Asthma Current Visit: Yes Status: Chronic Qualifiers: Asthma severity: mild intermittent Asthma complication type: uncomplicated Qualified Code(s): J45.20 - Mild intermittent asthma, uncomplicated (4) COPD (chronic obstructive pulmonary disease) Current Visit: Yes Status: Chronic Qualifiers: COPD type: emphysema Emphysema type: other Qualified Code(s): J43.8 - Other emphysema (5) HTN (hypertension) Current Visit: Yes Status: Chronic Qualifiers: Hypertension type: essential hypertension Qualified Code(s): I10 - Essential (primary) hypertension (6) Nicotine dependence Current Visit: Yes Status: Acute Qualifiers: Nicotine product type: cigarettes Substance use status: in withdrawal Qualified Code(s): F17.213 - Nicotine dependence, cigarettes, with withdrawal (7) Positive PPD, treated Current Visit: Yes Status: Resolved (8) Hypercholesteremia Current Visit: Yes Status: Chronic Cleared for Admission [facility] - Detox or Rehab [facility] Level of Care: Medically Managed Detox Regimen/Protocol: Librium S Breath Alcohol Content Breath Alcohol Content: 0 Urine Drug Screen - Results Drug Screen Negative: No Urine Drug Screen Results: PCP-Phencyclidine
[2016-09-02] MEDS ORDERED: ALBUTEROL SO4 6.7 GM HFA INHALER IH PRN (19:55)
[2016-09-02] MEDS: amLODIPine BESYLATE 10 MG TABLET (FP) PO SCH (21:13)
[2016-09-02] MEDS: ATORVASTATIN CA 40 MG TABLET (FP) PO SCH (22:09)
[2016-09-02] MEDS: chlordiazePOXIDE HCL 25 MG CAPSULE PO SCH (22:09)
[2016-09-02] MEDS: THIAMINE HCL 100 MG TABLET (FP) PO SCH (22:09)
[2016-09-02] MEDS: BUDESONIDE/FORMETEROL FUMARATE 80/4.5 mcg INHALER IH SCH (22:11)
[2016-09-02 23:04] LABS: URINE APPEARANCE CLEAR; URINE BILIRUBIN NEGATIVE (NEGATIVE); URINE BLOOD NEGATIVE (NEGATIVE); URINE COLOR YELLOW; URINE GLUCOSE (UA) NEGATIVE (NEGATIVE); URINE KETONE NEGATIVE (NEGATIVE); URINE LEUK ESTERASE NEGATIVE (NEGATIVE); URINE NITRITE NEGATIVE (NEGATIVE); URINE UROBILINOGEN NEGATIVE E.U./dl (0.2-1.0)
[2016-09-02 23:13] LABS: URINE PROTEIN 2+ (NEGATIVE)
[2016-09-02 23:17] LABS: URINE RBC 4 /hpf (0-3); URINE WBC 4 /hpf (3-5)
[2016-09-03] MEDS: chlordiazePOXIDE HCL 25 MG CAPSULE PO SCH ×4 (05:11→22:11)
--- NOTE | 2016-09-03 09:59 | PN ---
S CIWA - CIWA Score Nausea/Vomitin-No Nausea/No Vomiting Muscle Tremors: 3 Anxiety: 3 Agitation: 4-Moderately Restless Paroxysmal Sweats: 3 Orientation: 0-Oriented Tacttile Disturbances: 0-None Auditory Disturbances: 0-None Visual Disturbances: 0-None Headache: 0-None Present CIWA-Ar Total Score: 13 B[facility] Progress Note (SOAP) Subjective: sweats body aches restless cough interrupted sleep Objective: 09/03/16 10:14 Vital Signs Temperature 97.7 F 09/03/16 06:00 Pulse Rate 66 09/03/16 06:00 Respiratory Rate 18 09/03/16 06:00 Blood Pressure 143/91 09/03/16 06:00 O2 Sat by Pulse Oximetry (%) Laboratory Tests 09/02/16 22:05 Urine Color Yellow Urine Appearance Clear Urine pH 6.0 Urine Protein 2+ H Urine Glucose (UA) Negative Urine Ketones Negative Urine Blood Negative Urine Nitrite Negative Urine Bilirubin Negative Urine Urobilinogen Negative Ur Leukocyte Esterase Negative Urine RBC 4 Urine WBC 4 Ur Epithelial Cells Rare labs pending awake/alert ambulating no acute distress Assessment: 09/03/16 10:15 withdrawal sx Plan: continue detox increase fluids robitussin prn labs pending
[2016-09-03] MEDS: amLODIPine BESYLATE 10 MG TABLET (FP) PO SCH (10:09)
[2016-09-03] MEDS: NIFEdipine E.R. 30 MG TABLET (FP) PO SCH (10:09)
[2016-09-03] MEDS: BUDESONIDE/FORMETEROL FUMARATE 80/4.5 mcg INHALER IH SCH ×2 (10:09→22:12)
[2016-09-03] MEDS: HYDROCHLOROTHIAZIDE 25 MG TABLET (FP) PO SCH (10:09)
[2016-09-03] MEDS: PRENATAL VITAMINS W/ FOLIC ACID TABLET (FP) PO SCH (10:10)
[2016-09-03] MEDS: ASPIRIN 81 MG CHEWABLE TABLETS PO SCH (10:10)
[2016-09-03] MEDS: NICOTINE 14 MG/24 HOURS TOPICAL PATCH TD SCH (10:10)
[2016-09-03 10:13] LABS: ALBUMIN 3.1 g/dl (3.4-5.0); CALCIUM 8.2 mg/dL (8.5-10.1)
[2016-09-03 10:19] LABS: BILIRUBIN,TOTAL 0.4 mg/dL (0.2-1.0); COCKROFT - GAULT 47.1; TOT PROT 6.6 g/dl (6.4-8.2)
[2016-09-03 10:29] LABS: MCH 25.4 pg (25.7-33.7); MCHC 31.9 g/dl (32.0-35.9); MEAN CELL VOLUME 79.5 fl (80-96); MEAN PLT VOLUME 9.5 fl (7.5-11.1); PLATELET COUNT 134 K/MM3 (134-434); RDW 17.3 % (11.9-15.9); WHITE BLOOD COUNT 5.5 K/mm3 (4.0-10.0)
--- NOTE | 2016-09-03 11:58 | EKG ---
Test Reason : Blood Pressure : / mmHG Vent. Rate : 082 BPM Atrial Rate : 082 BPM P-R Int : 150 ms QRS Dur : 112 ms QT Int : 422 ms P-R-T Axes : 074 -21 094 degrees QTc Int : 493 ms NORMAL SINUS RHYTHM SEPTAL INFARCT (CITED ON OR BEFORE 09-MAY-2016) ABNORMAL ECG WHEN COMPARED WITH ECG OF 09-MAY-2016 17:28, QRS AXIS SHIFTED RIGHT QUESTIONABLE CHANGE IN INITIAL FORCES OF ANTERIOR LEADS ST NOW DEPRESSED IN ANTERIOR LEADS ST NO LONGER ELEVATED IN LATERAL LEADS NONSPECIFIC T WAVE ABNORMALITY NO LONGER EVIDENT IN INFERIOR LEADS Confirmed by YAQUELIN MILLER, JAIRO ([id number]) on 09/03/2016 11:57:54 AM Referred By: Confirmed By:JAIRO JAMISON MD
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
[2016-09-03] MEDS: THIAMINE HCL 100 MG TABLET (FP) PO SCH (22:11)
[2016-09-03] MEDS: ATORVASTATIN CA 40 MG TABLET (FP) PO SCH (22:11)
[2016-09-04] MEDS: chlordiazePOXIDE HCL 25 MG CAPSULE PO SCH ×3 (06:35→17:29)
[2016-09-04] MEDS: ACETAMINOPHEN 325 MG TABLET (FP) PO PRN ×2 (06:54→17:31)
--- NOTE | 2016-09-04 10:01 | PN ---
S CIWA - CIWA Score Nausea/Vomitin Muscle Tremors: 3 Anxiety: 3 Agitation: 2 Paroxysmal Sweats: 1-Minimal Palms Moist Orientation: 0-Oriented Tacttile Disturbances: 1-Very Mild Itch/Numbness Auditory Disturbances: 1-Very Mild Visual Disturbances: 1-Very Mild Sensitivity Headache: 2-Mild CIWA-Ar Total Score: 17 [facility] Progress Note (SOAP) Subjective: ALERT,IRRITABLE,ANXIOUS,INTERRUPTED SLEEP,TREMOR Objective: 09/04/16 09:58 Vital Signs Temperature 97.7 F 09/04/16 09:41 Pulse Rate 86 09/04/16 09:41 Respiratory Rate 20 09/04/16 09:41 Blood Pressure 137/95 09/04/16 09:41 O2 Sat by Pulse Oximetry (%) 09/04/16 09:58 Laboratory Last Values WBC 5.5 K/mm3 (4.0-10.0) D 09/03/16 07:00 RBC 4.36 M/mm3 (4.00-5.60) 09/03/16 07:00 Hgb 11.1 GM/dL (11.7-16.9) L D 09/03/16 07:00 Hct 34.7 % (35.4-49) L D 09/03/16 07:00 MCV 79.5 fl (80-96) L 09/03/16 07:00 MCHC 31.9 g/dl (32.0-35.9) L 09/03/16 07:00 RDW 17.3 % (11.9-15.9) H 09/03/16 07:00 Plt Count 134 K/MM3 (134-434) D 09/03/16 07:00 MPV 9.5 fl (7.5-11.1) D 09/03/16 07:00 Sodium 141 mmol/L (136-145) 09/03/16 07:00 Potassium 3.5 mmol/L (3.5-5.1) 09/03/16 07:00 Chloride 103 mmol/L (98-107) 09/03/16 07:00 Carbon Dioxide 33 mmol/L (21-32) H 09/03/16 07:00 Anion Gap 5 (8-16) L 09/03/16 07:00 BUN 27 mg/dL (7-18) H D 09/03/16 07:00 Creatinine 2.0 mg/dL (0.7-1.3) H D 09/03/16 07:00 Creat Clearance w eGFR 34.03 (>60) 09/03/16 07:00 Random Glucose 94 mg/dL (74-106) D 09/03/16 07:00 Calcium 8.2 mg/dL (8.5-10.1) L 09/03/16 07:00 Total Bilirubin 0.4 mg/dL (0.2-1.0) 09/03/16 07:00 AST 25 U/L (15-37) D 09/03/16 07:00 ALT 25 U/L (12-78) D 09/03/16 07:00 Alkaline Phosphatase 100 U/L (45-117) 09/03/16 07:00 Total Protein 6.6 g/dl (6.4-8.2) D 09/03/16 07:00 Albumin 3.1 g/dl (3.4-5.0) L D 09/03/16 07:00 Urine Color Yellow 09/02/16 22:05 Urine Appearance Clear 09/02/16 22:05 Urine pH 6.0 (5.0-8.0) 09/02/16 22:05 Ur Specific [place] 1.015 (1.005-1.025) 09/02/16 22:05 Urine Protein 2+ (NEGATIVE) H 09/02/16 22:05 Urine Glucose (UA) Negative (NEGATIVE) 09/02/16 22:05 Urine Ketones Negative (NEGATIVE) 09/02/16 22:05 Urine Blood Negative (NEGATIVE) 09/02/16 22:05 Urine Nitrite Negative (NEGATIVE) 09/02/16 22:05 Urine Bilirubin Negative (NEGATIVE) 09/02/16 22:05 Urine Urobilinogen Negative E.U./dl (0.2-1.0) 09/02/16 22:05 Ur Leukocyte Esterase Negative (NEGATIVE) 09/02/16 22:05 Urine RBC 4 /hpf (0-3) 09/02/16 22:05 Urine WBC 4 /hpf (3-5) 09/02/16 22:05 Ur Epithelial Cells Rare /hpf (FEW) 09/02/16 22:05 RPR Titer Nonreactive (NONREACTIVE) 09/03/16 07:00 09/04/16 09:59 CHRONIC RENAL INSUFFICIENCY Assessment: 09/04/16 09:59 WITHDRAWAL SYMPTOM 09/04/16 10:00 Plan: CONTINUE DETOX,ENCOURAGE ORAL FLUID
[2016-09-04] MEDS: NIFEdipine E.R. 30 MG TABLET (FP) PO SCH (10:12)
[2016-09-04] MEDS: amLODIPine BESYLATE 10 MG TABLET (FP) PO SCH (10:12)
[2016-09-04] MEDS: NICOTINE 14 MG/24 HOURS TOPICAL PATCH TD SCH (10:12)
[2016-09-04] MEDS: PRENATAL VITAMINS W/ FOLIC ACID TABLET (FP) PO SCH (10:12)
[2016-09-04] MEDS: ASPIRIN 81 MG CHEWABLE TABLETS PO SCH (10:12)
[2016-09-04] MEDS: HYDROCHLOROTHIAZIDE 25 MG TABLET (FP) PO SCH (10:12)
[2016-09-04] MEDS: BUDESONIDE/FORMETEROL FUMARATE 80/4.5 mcg INHALER IH SCH ×2 (10:14→22:15)
[2016-09-04] MEDS: LIDOCAINE 5% TOPICAL PATCH TP SCH (11:17)
[2016-09-04] MEDS ORDERED: NAPROXEN 500 MG TABLET (FP) PO ONE (15:04)
[2016-09-04] MEDS: ATORVASTATIN CA 40 MG TABLET (FP) PO SCH (22:14)
[2016-09-04] MEDS: METHYL SALICYLATE/MENTHOL OINT 30 GM TUBE TP SCH (22:14)
[2016-09-04] MEDS: THIAMINE HCL 100 MG TABLET (FP) PO SCH (22:15)
[2016-09-04] MEDS: chlordiazePOXIDE 5 MG CAPSULE PO SCH (22:15)
[2016-09-04] MEDS: LIDOCAINE PATCH REMOVAL MC SCH (22:15)
[2016-09-04] MEDS: NAPROXEN 500 MG TABLET (FP) PO SCH (22:15)
[2016-09-05] MEDS: chlordiazePOXIDE 5 MG CAPSULE PO SCH ×3 (06:21→17:26)
[2016-09-05] MEDS: ACETAMINOPHEN 325 MG TABLET (FP) PO PRN (06:23)
--- NOTE | 2016-09-05 09:06 | PN ---
S Progress Note (SOAP) Subjective: ALERT,INTERRUPTED SLEEP,PAIN IN THE RIGHT FOOT IS LESS,AMBULATION WITH WALKER Objective: 09/05/16 09:02 Vital Signs Temperature 96.6 F L 09/05/16 06:08 Pulse Rate 62 09/05/16 06:08 Respiratory Rate 18 09/05/16 06:08 Blood Pressure 111/65 09/05/16 06:08 O2 Sat by Pulse Oximetry (%) Assessment: 09/05/16 09:02 WITHDRAWAL SYMPTOM Plan: CONTINUE DETOX,DISCHARGE IN AM
[2016-09-05] MEDS: NIFEdipine E.R. 30 MG TABLET (FP) PO SCH (10:13)
[2016-09-05] MEDS: HYDROCHLOROTHIAZIDE 25 MG TABLET (FP) PO SCH (10:13)
[2016-09-05] MEDS: PRENATAL VITAMINS W/ FOLIC ACID TABLET (FP) PO SCH (10:13)
[2016-09-05] MEDS: amLODIPine BESYLATE 10 MG TABLET (FP) PO SCH (10:13)
[2016-09-05] MEDS: NAPROXEN 500 MG TABLET (FP) PO SCH ×2 (10:13→22:06)
[2016-09-05] MEDS: NICOTINE 14 MG/24 HOURS TOPICAL PATCH TD SCH (10:14)
[2016-09-05] MEDS: METHYL SALICYLATE/MENTHOL OINT 30 GM TUBE TP SCH ×2 (10:14→22:08)
[2016-09-05] MEDS: ASPIRIN 81 MG CHEWABLE TABLETS PO SCH (10:14)
[2016-09-05] MEDS: LIDOCAINE 5% TOPICAL PATCH TP SCH (10:14)
[2016-09-05] MEDS: BUDESONIDE/FORMETEROL FUMARATE 80/4.5 mcg INHALER IH SCH ×2 (10:15→22:07)
[2016-09-05] MEDS: ATORVASTATIN CA 40 MG TABLET (FP) PO SCH (22:05)
[2016-09-05] MEDS: THIAMINE HCL 100 MG TABLET (FP) PO SCH (22:06)
[2016-09-05] MEDS: chlordiazePOXIDE HCL 10 MG CAPSULE PO SCH (22:06)
[2016-09-05] MEDS: LIDOCAINE PATCH REMOVAL MC SCH (22:08)
[2016-09-06 06:11] VITALS: PULSE 66
[2016-09-06] MEDS: chlordiazePOXIDE HCL 10 MG CAPSULE PO SCH ×2 (06:12→10:00)
[2016-09-06] MEDS: ASPIRIN 81 MG CHEWABLE TABLETS PO SCH (10:00)
[2016-09-06] MEDS: BUDESONIDE/FORMETEROL FUMARATE 80/4.5 mcg INHALER IH SCH (10:00)
[2016-09-06] MEDS: NAPROXEN 500 MG TABLET (FP) PO SCH (10:00)
[2016-09-06] MEDS: PRENATAL VITAMINS W/ FOLIC ACID TABLET (FP) PO SCH (10:00)
[2016-09-06] MEDS: HYDROCHLOROTHIAZIDE 25 MG TABLET (FP) PO SCH (10:00)
[2016-09-06] MEDS: NIFEdipine E.R. 30 MG TABLET (FP) PO SCH (10:00)
[2016-09-06] MEDS: amLODIPine BESYLATE 10 MG TABLET (FP) PO SCH (10:00)
[2016-09-06] MEDS: LIDOCAINE 5% TOPICAL PATCH TP SCH (10:00)
[2016-09-06] MEDS: NICOTINE 14 MG/24 HOURS TOPICAL PATCH TD SCH (10:00)
[2016-09-06] MEDS: METHYL SALICYLATE/MENTHOL OINT 30 GM TUBE TP SCH (10:00)
--- NOTE | 2016-09-06 10:21 | DS ---
[facility] Detox Discharge Summary Admission Date: 09/02/16 Discharge Date: 09/06/16 - History Present History: Alcohol Dependence, Cannabis Dependence, Cocaine Dependence, Pcp Dependence Pertinent Past History: COPD HTN Hypercholesterolemia - Physical Exam Results Vital Signs: Vital Signs Temperature 96.3 F L 09/06/16 06:09 Pulse Rate 66 09/06/16 06:09 Respiratory Rate 16 09/06/16 06:09 Blood Pressure 132/90 09/06/16 06:09 O2 Sat by Pulse Oximetry (%) Pertinent Admission Physical Exam Findings: Withdrawal SX. Laboratory Last Values WBC 5.5 K/mm3 (4.0-10.0) D 09/03/16 07:00 RBC 4.36 M/mm3 (4.00-5.60) 09/03/16 07:00 Hgb 11.1 GM/dL (11.7-16.9) L D 09/03/16 07:00 Hct 34.7 % (35.4-49) L D 09/03/16 07:00 MCV 79.5 fl (80-96) L 09/03/16 07:00 MCHC 31.9 g/dl (32.0-35.9) L 09/03/16 07:00 RDW 17.3 % (11.9-15.9) H 09/03/16 07:00 Plt Count 134 K/MM3 (134-434) D 09/03/16 07:00 MPV 9.5 fl (7.5-11.1) D 09/03/16 07:00 Sodium 141 mmol/L (136-145) 09/03/16 07:00 Potassium 3.5 mmol/L (3.5-5.1) 09/03/16 07:00 Chloride 103 mmol/L (98-107) 09/03/16 07:00 Carbon Dioxide 33 mmol/L (21-32) H 09/03/16 07:00 Anion Gap 5 (8-16) L 09/03/16 07:00 BUN 27 mg/dL (7-18) H D 09/03/16 07:00 Creatinine 2.0 mg/dL (0.7-1.3) H D 09/03/16 07:00 Creat Clearance w eGFR 34.03 (>60) 09/03/16 07:00 Random Glucose 94 mg/dL (74-106) D 09/03/16 07:00 Calcium 8.2 mg/dL (8.5-10.1) L 09/03/16 07:00 Total Bilirubin 0.4 mg/dL (0.2-1.0) 09/03/16 07:00 AST 25 U/L (15-37) D 09/03/16 07:00 ALT 25 U/L (12-78) D 09/03/16 07:00 Alkaline Phosphatase 100 U/L (45-117) 09/03/16 07:00 Total Protein 6.6 g/dl (6.4-8.2) D 09/03/16 07:00 Albumin 3.1 g/dl (3.4-5.0) L D 09/03/16 07:00 Urine Color Yellow 09/02/16 22:05 Urine Appearance Clear 09/02/16 22:05 Urine pH 6.0 (5.0-8.0) 09/02/16 22:05 Ur Specific [place] 1.015 (1.005-1.025) 09/02/16 22:05 Urine Protein 2+ (NEGATIVE) H 09/02/16 22:05 Urine Glucose (UA) Negative (NEGATIVE) 09/02/16 22:05 Urine Ketones Negative (NEGATIVE) 09/02/16 22:05 Urine Blood Negative (NEGATIVE) 09/02/16 22:05 Urine Nitrite Negative (NEGATIVE) 09/02/16 22:05 Urine Bilirubin Negative (NEGATIVE) 09/02/16 22:05 Urine Urobilinogen Negative E.U./dl (0.2-1.0) 09/02/16 22:05 Ur Leukocyte Esterase Negative (NEGATIVE) 09/02/16 22:05 Urine RBC 4 /hpf (0-3) 09/02/16 22:05 Urine WBC 4 /hpf (3-5) 09/02/16 22:05 Ur Epithelial Cells Rare /hpf (FEW) 09/02/16 22:05 RPR Titer Nonreactive (NONREACTIVE) 09/03/16 07:00 labs noted - Treatment Hospital Course: Detox Protocol Followed, Detoxed Safely, Responded well, Discharged Condition Good, Rehab Referral Accepted Patient has Accepted a Rehab Referral to: [facility] - Medication Discharge Medications: Ambulatory Orders Albuterol Sulfate Inhaler - [Ventolin HFA Inhaler -] 2 inh PO Q4H PRN #1 inh 10/17 Amlodipine Besylate [Norvasc -] 10 mg PO DAILY #30 tablet 09/10/13 Hydrochlorothiazide [Hctz -] 25 mg PO DAILY #30 tablet 09/10/13 Trazodone HCl [Desyrel -] 100 mg PO HS #30 tablet 10/12/15 Aspirin [ASA -] 81 mg PO DAILY 05/09/16 Atorvastatin Ca [Lipitor] 40 mg PO HS 05/09/16 Folic Acid - 1 mg PO DAILY 05/09/16 Mirtazapine [Remeron -] 15 mg PO HS 05/09/16 Nifedipine [Nifedical Xl] 60 mg PO DAILY 05/09/16 Thiamine HCl [Vitamin B-1] 50 mg PO DAILY 05/09/16 Trazodone HCl [Desyrel -] 50 mg PO HS #30 tablet 05/10/16 - Diagnosis (1) Alcohol dependence with uncomplicated withdrawal Current Visit: Yes Status: Acute (2) Nicotine dependence Current Visit: Yes Status: Acute Qualifiers: Nicotine product type: cigarettes Substance use status: in withdrawal Qualified Code(s): F17.213 - Nicotine dependence, cigarettes, with withdrawal (3) PCP (phencyclidine) abuse Current Visit: Yes Status: Acute (4) Substance induced mood disorder Current Visit: Yes Status: Acute (5) Asthma Current Visit: Yes Status: Chronic Qualifiers: Asthma severity: mild intermittent Asthma complication type: uncomplicated Qualified Code(s): J45.20 - Mild intermittent asthma, uncomplicated (6) COPD (chronic obstructive pulmonary disease) Current Visit: Yes Status: Chronic Qualifiers: COPD type: emphysema Emphysema type: other Qualified Code(s): J43.8 - Other emphysema (7) HTN (hypertension) Current Visit: Yes Status: Chronic Qualifiers: Hypertension type: essential hypertension Qualified Code(s): I10 - Essential (primary) hypertension (8) Hypercholesteremia Current Visit: Yes Status: Chronic (9) Cannabis dependence Current Visit: Yes Status: Acute - AMA Did Patient Leave Against Medical Advice: No
[2016-09-06 11:00] VITALS: BP 149/82; TEMP 97.7
== END 2016-09-06 10:12 | disposition home or self-care (01) | DRG 775 ==
LOC: YASAS 15:37 → Y6N 20:03
PROVIDERS: ADMIT Internal Medicine Addiction Medicine; ATTEND Internal Medicine Addiction Medicine
PROC: HZ2ZZZZ Detoxification Services for Substance Abuse Treatment (ICD-10-PCS; principal; 2016-09-06)
DX: F10.230 Alcohol dependence with withdrawal, uncomplicated (principal); F12.20 Cannabis dependence, uncomplicated; F17.213 Nicotine dependence, cigarettes, with withdrawal; F16.10 Hallucinogen abuse, uncomplicated; F19.24 Other psychoactive substance dependence with psychoactive substance-induced mood disorder; J45.22 Mild intermittent asthma with status asthmaticus; J43.8 Other emphysema; I10 Essential (primary) hypertension; E78.00 Pure hypercholesterolemia, unspecified; R76.11 Nonspecific reaction to tuberculin skin test without active tuberculosis
CPT/HCPCS: 36415; 80053; 81003; 81015; 85027; 86593; 93005; 93010

== ENCOUNTER 2016-12-26 20:08 | Inpatient (IN) | payer OTHER ==
[2016-12-26 20:16] VITALS: BMI 25.8
--- NOTE | 2016-12-26 20:38 | HP ---
CIWA Score - CIWA Score Nausea/Vomitin Muscle Tremors: 4-Moderate,w/Arms Extend Anxiety: 4-Mod. Anxious/Guarded Agitation: 4-Moderately Restless Paroxysmal Sweats: 2 Orientation: 0-Oriented Tacttile Disturbances: 3-Moderate Itch/Numb/Burn Auditory Disturbances: 3-Moderate Harsh/Frighten Visual Disturbances: 3-Moderate Sensitivity Headache: 0-None Present CIWA-Ar Total Score: 26 Admission ROS BHS - HPI Chief Complaint: C/O ETOH WITHDRAWAL. SEEKING DETOX TXMENT Allergies/Adverse Reactions: Allergies Allergy/AdvReac Type Severity Reaction Status Date / Time No Known Allergies Allergy Verified 09/02/16 19:04 History of Present Illness: 61 Y.O. MALE KNOWN TO THIS DETOX ADMITTED FOR ALCOHOL DETOX. CLIENT DENIES ANY DETOX OR REHAB SERVICES SINCE HIS LAST ADMISSION. SELF REFERRED. LONGEST CLEAN TIME 2 YEARS. Exam Limitations: No Limitations - Ebola screening Have you traveled outside of the country in the last 21 days: No (N) Have you had contact with anyone from an Ebola affected area: No Have you been sick,other than usual withdrawal symptoms: No Do you have a fever: No - Review of Systems Constitutional: Chills, Night Sweats, Changes in sleep EENT: reports: No Symptoms Reported Respiratory: reports: Shortness of Breath, Other (COPD) Cardiac: reports: No Symptoms Reported GI: reports: Nausea, Poor Fluid Intake : reports: No Symptoms Reported Musculoskeletal: reports: Joint Pain, Other (ARTHRITIS) Integumentary: reports: No Symptoms Reported Neuro: reports: No Symptoms reported Endocrine: reports: No Symptoms Reported Hematology: reports: No Symptoms Reported Psychiatric: reports: Anxious, Depressed Other Systems: Reviewed and Negative Patient History - Patient Medical History Hx Anemia: No Hx Asthma: Yes Hx Chronic Obstructive Pulmonary Disease (COPD): Yes Hx Cancer: No Hx Cardiac Disorders: No Hx Congestive Heart Failure: No Hx Hypertension: Yes (on med) Hx Hypercholesterolemia: Yes Hx Pacemaker: No HX Cerebrovascular Accident: No Hx Seizures: No Hx Dementia: No Hx Diabetes: No Hx Gastrointestinal Disorders: No Hx Liver Disease: No Hx Genitourinary Disorders: No Hx Sexually Transmitted Disorders: Yes (1979 and completed tx) Hx Renal Disease (ESRD): No Hx Thyroid Disease: No Hx Human Immunodeficiency Virus (HIV): No Hx Hepatitis C: No Hx Depression: Yes (on med) Hx Suicide Attempt: No Hx Bipolar Disorder: No Hx Schizophrenia: No Other Medical History: DENIES - Patient Surgical History Past Surgical History: Yes Hx Neurologic Surgery: No Hx Cataract Extraction: No Hx Cardiac Surgery: No Hx Lung Surgery: No Hx Breast Surgery: No Hx Breast Biopsy: No Hx Abdominal Surgery: No Hx Appendectomy: No Hx Cholecystectomy: No Hx Genitourinary Surgery: No Hx Section: No Hx Orthopedic Surgery: Yes (right ankle surgery 1979) Anesthesia Reaction: No - PPD History Previous Implant?: Yes Documented Results: Positive w/o proof Implanted On Prior [facility] Admission?: No Results: CXR TBD PPD to be Administered?: No - Smoking Cessation Smoking history: Current every day smoker Have you smoked in the past 12 months: Yes Aproximately how many cigarettes per day: 10 Cigars Per Day: 0 Hx Chewing Tobacco Use: No Initiated information on smoking cessation: Yes 'Breaking Loose' booklet given: 12/26/16 - Substance & Tx. History Hx Alcohol Use: Yes Hx Substance Use: Yes Substance Use Type: Alcohol, Marijuana (K2), Tranquilizers Hx Substance Use Treatment: Yes ([facility]) - Substances Abused LIQUOR/BEER Route: Oral Frequency: Daily Amount used: 2 PINTS VODKA/6 PACK Age of first use: 15 Date of Last Use: 12/26/16 Family Disease History - Family Disease History Family Disease History: Other: Father (alcohol,), Mother ( alcohol.) Admission Physical Exam S - Vital Signs Vital Signs: Vital Signs - 24 hr 12/26/16 20:10 Temperature 97.9 F Pulse Rate 73 Respiratory 18 Rate Blood Pressure 172/88 - Physical General Appearance: Yes: Disheveled, Mild Distress, Tremorous, Anxious HEENTM: Yes: EOMI, Normocephalic, Pharynx Normal, Other (POOR DENTITION) Respiratory: Yes: Chest Non-Tender, Lungs Clear, Normal Breath Sounds, No Respiratory Distress, No Accessory Muscle Use Neck: Yes: No masses,lesions,Nodules, Supple, Trachea in good position Breast: Yes: Breast Exam Deferred Cardiology: Yes: Regular Rhythm, Regular Rate, S1, S2 Abdominal: Yes: Normal Bowel Sounds, Non Tender, Soft, Protuberent Genitourinary: Yes: Within Normal Limits Back: Yes: Normal Inspection Musculoskeletal: Yes: full range of Motion, Gait Steady Extremities: Yes: Normal Capillary Refill, Normal Range of Motion, Non-Tender, Tremors Neurological: Yes: application analyst II-XII NML intact, Fully Oriented, Alert, Motor Strength 5/5 Integumentary: Yes: Dry, Warm, Other (FLUSHED) Lymphatic: Yes: Within Normal Limits - Diagnostic (1) Alcohol dependence with uncomplicated withdrawal Current Visit: Yes Status: Chronic (2) Nicotine dependence Current Visit: Yes Status: Chronic Qualifiers: Nicotine product type: cigarettes Substance use status: in withdrawal Qualified Code(s): F17.213 - Nicotine dependence, cigarettes, with withdrawal (3) PCP (phencyclidine) abuse Current Visit: Yes Status: Chronic (4) Asthma Current Visit: Yes Status: Chronic Qualifiers: Asthma severity: mild intermittent Asthma complication type: uncomplicated Qualified Code(s): J45.20 - Mild intermittent asthma, uncomplicated (5) COPD (chronic obstructive pulmonary disease) Current Visit: Yes Status: Chronic Qualifiers: COPD type: emphysema Emphysema type: other Qualified Code(s): J43.8 - Other emphysema (6) HTN (hypertension) Current Visit: Yes Status: Chronic Qualifiers: Hypertension type: essential hypertension Qualified Code(s): I10 - Essential (primary) hypertension (7) Hypercholesteremia Current Visit: Yes Status: Chronic Cleared for Admission BHS - Detox or Rehab S Level of Care: Medically Managed Detox Regimen/Protocol: Librium [facility] Breath Alcohol Content Breath Alcohol Content: 0 Urine Drug Screen - Results Drug Screen Negative: No Urine Drug Screen Results: PCP-Phencyclidine
[2016-12-26] MEDS ORDERED: ACETAMINOPHEN 325 MG TABLET (FP) PO PRN (20:41)
[2016-12-26] MEDS ORDERED: diphenhydrAMINE HCL 50 MG CAPSULE PO PRN (20:41)
[2016-12-26] MEDS ORDERED: IBUPROFEN 400 MG TABLET (FP) PO PRN (20:41)
[2016-12-26] MEDS ORDERED: MAG HYDROX/AL HYDROX/SIMETH 30 ML UNIT-DOSE CUP PO PRN (20:41)
[2016-12-26] MEDS ORDERED: NICOTINE POLACRILEX 2 MG GUM BUC PRN (20:41)
[2016-12-26] MEDS ORDERED: MENTHOL/PHENOL 1 EACH UD MM PRN (20:41)
[2016-12-26] MEDS ORDERED: chlordiazePOXIDE HCL 25 MG CAPSULE PO PRN (20:41)
[2016-12-26] MEDS ORDERED: MAGNESIUM CITRATE 300 ML BOTTLE PO PRN (20:41)
[2016-12-26] MEDS ORDERED: P-EPHED 60MG/TRIPROLIDI 2.5MG TABLET PO PRN (20:41)
[2016-12-26] MEDS ORDERED: LOPERAMIDE HCL 2 MG CAPSULE PO PRN (20:41)
[2016-12-26] MEDS ORDERED: MAGNESIUM HYDROX 2400MG/30ML ORAL SUSPENSION 30 ML CUP PO PRN (20:41)
[2016-12-26] MEDS: ASPIRIN 81 MG CHEWABLE TABLETS PO SCH (21:45)
[2016-12-26] MEDS: amLODIPine BESYLATE 10 MG TABLET (FP) PO SCH (21:45)
[2016-12-26] MEDS: THIAMINE HCL 100 MG TABLET (FP) PO SCH (21:46)
[2016-12-26] MEDS: ATORVASTATIN CA 40 MG TABLET (FP) PO SCH (21:46)
[2016-12-26] MEDS: NICOTINE 21 MG/24 HOURS TOPICAL PATCH TD SCH (21:47)
[2016-12-26] MEDS: chlordiazePOXIDE HCL 25 MG CAPSULE PO SCH (22:22)
[2016-12-26 22:44] LABS: URINE APPEARANCE CLEAR; URINE BILIRUBIN 1+ (NEGATIVE); URINE BLOOD TRACE-INTA (NEGATIVE); URINE COLOR LT. YELLOW; URINE GLUCOSE (UA) NEGATIVE (NEGATIVE); URINE KETONE TRACE (NEGATIVE); URINE LEUK ESTERASE NEGATIVE (NEGATIVE); URINE NITRITE NEGATIVE (NEGATIVE); URINE PROTEIN 1+ (NEGATIVE); URINE UROBILINOGEN 0.2 mg/dL (0.2-1.0)
[2016-12-26 23:04] LABS: GRANULAR CASTS 8 /lpf; URINE HYALINE CAST 4 /lpf; URINE MUCUS RARE; URINE RBC 2 /hpf (0-3); URINE WBC 3 /hpf (3-5)
[2016-12-27] MEDS: chlordiazePOXIDE HCL 25 MG CAPSULE PO SCH ×4 (06:09→22:38)
--- NOTE | 2016-12-27 09:49 | EKG ---
Test Reason : Blood Pressure : / mmHG Vent. Rate : 073 BPM Atrial Rate : 073 BPM P-R Int : 152 ms QRS Dur : 126 ms QT Int : 430 ms P-R-T Axes : 079 012 068 degrees QTc Int : 473 ms NORMAL SINUS RHYTHM NON-SPECIFIC INTRA-VENTRICULAR CONDUCTION BLOCK CANNOT RULE OUT ANTEROSEPTAL INFARCT (CITED ON OR BEFORE 09-MAY-2016) ABNORMAL ECG Confirmed by MD ESTELLA, DONNA ([id number]) on 12/27/2016 9:49:04 AM Referred By: Confirmed By:DONNA SORIA MD
--- NOTE | 2016-12-27 09:49 | EKG ---
Test Reason : Blood Pressure : / mmHG Vent. Rate : 064 BPM Atrial Rate : 064 BPM P-R Int : 146 ms QRS Dur : 118 ms QT Int : 458 ms P-R-T Axes : 073 -12 066 degrees QTc Int : 472 ms NORMAL SINUS RHYTHM ANTEROSEPTAL INFARCT (CITED ON OR BEFORE 09-MAY-2016) ABNORMAL ECG Confirmed by MD ESTELLA, DONNA (2013) on 12/27/2016 9:48:43 AM Referred By: Confirmed By:DONNA SORIA MD
[2016-12-27] MEDS: PRENATAL VITAMINS W/ FOLIC ACID TABLET (FP) PO SCH (10:09)
[2016-12-27] MEDS: ASPIRIN 81 MG CHEWABLE TABLETS PO SCH (10:09)
[2016-12-27] MEDS: amLODIPine BESYLATE 10 MG TABLET (FP) PO SCH (10:09)
[2016-12-27] MEDS: NICOTINE 21 MG/24 HOURS TOPICAL PATCH TD SCH (10:10)
[2016-12-27] MEDS: ALBUTEROL SO4 18 GM HFA INHALER IH PRN ×2 (10:11→16:05)
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
[2016-12-27 10:29] LABS: MCH 24.3 pg (25.7-33.7); MCHC 31.4 g/dl (32.0-35.9); MEAN CELL VOLUME 77.3 fl (80-96); MEAN PLT VOLUME 9.5 fl (7.5-11.1); PLATELET COUNT 181 K/MM3 (134-434); RDW 18.3 % (11.9-15.9); WHITE BLOOD COUNT 6.4 K/mm3 (4.0-10.0)
[2016-12-27 11:20] LABS: ALBUMIN 3.1 g/dl (3.4-5.0); ANION GAP 8 (8-16); BILIRUBIN,TOTAL 0.4 mg/dL (0.2-1.0); CALCIUM 8.2 mg/dL (8.5-10.1); CO2 28 mmol/L (21-32); CREATININE 3.5 mg/dL (0.7-1.3); GLUCOSE,RANDOM 97 mg/dL (74-106); SGOT/AST 14 U/L (15-37); SGPT/ALT 18 U/L (12-78); TOT PROT 6.7 g/dl (6.4-8.2)
[2016-12-27 11:21] LABS: ALK PHOS 97 U/L (45-117)
--- NOTE | 2016-12-27 16:09 | PN ---
S CIWA - CIWA Score Nausea/Vomitin Muscle Tremors: 4-Moderate,w/Arms Extend Anxiety: 2 Agitation: 2 Paroxysmal Sweats: 3 Orientation: 0-Oriented Tacttile Disturbances: 1-Very Mild Itch/Numbness Auditory Disturbances: 0-None Visual Disturbances: 0-None Headache: 3-Moderate CIWA-Ar Total Score: 18 BHS Progress Note (SOAP) Subjective: Tremors, Anxious, Interrupted sleep, Sweating, Stomach Cramping. Objective: PT. A & O X 3, OBSERVED AMBULATING ON UNIT. NO ACUTE DISTRESS. PT. DENIES CHEST PAIN. 12/27/16 16:11 Vital Signs Temperature 97.0 F L 12/27/16 09:47 Pulse Rate 104 H 12/27/16 09:47 Respiratory Rate 18 12/27/16 09:47 Blood Pressure 150/80 12/27/16 09:47 O2 Sat by Pulse Oximetry (%) Laboratory Tests 12/26/16 12/27/16 12/27/16 21:57 08:00 08:00 WBC 6.4 RBC 4.63 Hgb 11.2 L Hct 35.8 MCV 77.3 L MCH 24.3 L MCHC 31.4 L RDW 18.3 H Plt Count 181 D MPV 9.5 Sodium 141 Potassium 3.7 Chloride 105 Carbon Dioxide 28 Anion Gap 8 BUN 46 H D Creatinine 3.5 H D Creat Clearance w eGFR 17.84 Random Glucose 97 Calcium 8.2 L Total Bilirubin 0.4 AST 14 L D ALT 18 D Alkaline Phosphatase 97 Total Protein 6.7 Albumin 3.1 L Urine Color Lt. yellow Urine Appearance Clear Urine pH 5.0 Ur Specific [place] 1.025 Urine Protein 1+ H Urine Glucose (UA) Negative Urine Ketones Trace H Urine Blood Trace-inta Urine Nitrite Negative Urine Bilirubin 1+ H Urine Urobilinogen 0.2 Urine RBC 2 Urine WBC 3 Ur Epithelial Cells Rare Hyaline Casts 4 Granular Casts 8 Urine Mucus Rare RPR Titer 12/27/16 08:00 WBC RBC Hgb Hct MCV MCH MCHC RDW Plt Count MPV Sodium Potassium Chloride Carbon Dioxide Anion Gap BUN Creatinine Creat Clearance w eGFR Random Glucose Calcium Total Bilirubin AST ALT Alkaline Phosphatase Total Protein Albumin Urine Color Urine Appearance Urine pH Ur Specific [place] Urine Protein Urine Glucose (UA) Urine Ketones Urine Blood Urine Nitrite Urine Bilirubin Urine Urobilinogen Urine RBC Urine WBC Ur Epithelial Cells Hyaline Casts Granular Casts Urine Mucus RPR Titer Nonreactive LABS NOTED. HCV AB RESULT PENDING. 12/27/16 16:15 Assessment: 12/27/16 16:12 WITHDRAWAL SYMPTOMS. Plan: CONTINUE DETOX. [facility] ON 12/29/2016 FOR ABNORMAL ADMISSION RENAL LABS. REPEAT UA FOR ADMISSION ABNORMALITIES. D/C MAGNESIUM-CONTAINING MEDS. INCREASE DAILY PO FLUID INTAKE.
[2016-12-27] MEDS: guaiFENesin/D-METHORPHAN HB 10 ML UNIT-DOSE CUPS PO PRN ×2 (17:07→23:10)
[2016-12-27] MEDS: THIAMINE HCL 100 MG TABLET (FP) PO SCH (22:38)
[2016-12-27] MEDS: ZOLPIDEM TARTRATE 10 MG TABLET (PARK CARE ONLY) PO PRN (22:38)
[2016-12-27] MEDS: ATORVASTATIN CA 40 MG TABLET (FP) PO SCH (22:39)
[2016-12-28] MEDS: chlordiazePOXIDE HCL 25 MG CAPSULE PO SCH ×3 (06:26→18:05)
[2016-12-28] MEDS: amLODIPine BESYLATE 10 MG TABLET (FP) PO SCH (10:09)
[2016-12-28] MEDS: PRENATAL VITAMINS W/ FOLIC ACID TABLET (FP) PO SCH (10:09)
[2016-12-28] MEDS: ASPIRIN 81 MG CHEWABLE TABLETS PO SCH (10:09)
[2016-12-28] MEDS: NICOTINE 21 MG/24 HOURS TOPICAL PATCH TD SCH (10:09)
[2016-12-28] MEDS: guaiFENesin/D-METHORPHAN HB 10 ML UNIT-DOSE CUPS PO PRN ×2 (10:11→18:04)
--- NOTE | 2016-12-28 15:06 | PN ---
[facility] CIWA - CIWA Score Nausea/Vomitin-Int. Nausea w/Dry Heave Muscle Tremors: 4-Moderate,w/Arms Extend Anxiety: 4-Mod. Anxious/Guarded Agitation: 4-Moderately Restless Paroxysmal Sweats: 3 Orientation: 0-Oriented Tacttile Disturbances: 1-Very Mild Itch/Numbness Auditory Disturbances: 0-None Visual Disturbances: 0-None Headache: 1-Very Mild CIWA-Ar Total Score: 21 S Progress Note (SOAP) Subjective: Chills, nausea, stomach ache, sweating, interrupted sleep, tremor Objective: 12/28/16 15:03 Last Vital Signs Temp Pulse Resp BP Pulse Ox 97.1 F L 110 H 18 150/87 12/28/16 13:55 12/28/16 13:55 12/28/16 13:55 12/28/16 13:55 Laboratory Tests 12/26/16 12/27/16 12/27/16 21:57 08:00 08:00 WBC 6.4 RBC 4.63 Hgb 11.2 L Hct 35.8 MCV 77.3 L MCH 24.3 L MCHC 31.4 L RDW 18.3 H Plt Count 181 D MPV 9.5 Sodium Potassium Chloride Carbon Dioxide Anion Gap BUN Creatinine Creat Clearance w eGFR Random Glucose Calcium Total Bilirubin AST ALT Alkaline Phosphatase Total Protein Albumin Urine Color Lt. yellow Urine Appearance Clear Urine pH 5.0 Ur Specific [place] 1.025 Urine Protein 1+ H Urine Glucose (UA) Negative Urine Ketones Trace H Urine Blood Trace-inta Urine Nitrite Negative Urine Bilirubin 1+ H Urine Urobilinogen 0.2 Urine RBC 2 Urine WBC 3 Ur Epithelial Cells Rare Hyaline Casts 4 Granular Casts 8 Urine Mucus Rare RPR Titer Hepatitis C Antibody 0.1 12/27/16 12/27/16 08:00 08:00 WBC RBC Hgb Hct MCV MCH MCHC RDW Plt Count MPV Sodium 141 Potassium 3.7 Chloride 105 Carbon Dioxide 28 Anion Gap 8 BUN 46 H D Creatinine 3.5 H D Creat Clearance w eGFR 17.84 Random Glucose 97 Calcium 8.2 L Total Bilirubin 0.4 AST 14 L D ALT 18 D Alkaline Phosphatase 97 Total Protein 6.7 Albumin 3.1 L Urine Color Urine Appearance Urine pH Ur Specific [place] Urine Protein Urine Glucose (UA) Urine Ketones Urine Blood Urine Nitrite Urine Bilirubin Urine Urobilinogen Urine RBC Urine WBC Ur Epithelial Cells Hyaline Casts Granular Casts Urine Mucus RPR Titer Nonreactive Hepatitis C Antibody Labs noted: bun 46, serum creatinine 3.5, GFR 17.84, UA: abnormal Assessment: 12/28/16 15:06 Withdrawal symptoms Noted with chronic renal failure (CRF) as per chart review (previous serum creatinine was 2.6>>2.9>>2.0) Plan: Continue detox CRF: encouraged to drink lots of water, water pitcher ordered, ordered for repeat BMP in AM, avoid renal impairment drugs including ANTOINETTE inhibitors and NSAID; f/u with PCP for referral to manager sales and marketing post discharge Abnormal UA: ordered for repeat UA
[2016-12-28] MEDS: ALBUTEROL SO4 18 GM HFA INHALER IH PRN ×2 (16:10→21:25)
[2016-12-28] MEDS: THIAMINE HCL 100 MG TABLET (FP) PO SCH (22:15)
[2016-12-28] MEDS: ATORVASTATIN CA 40 MG TABLET (FP) PO SCH (22:15)
[2016-12-28] MEDS: chlordiazePOXIDE 5 MG CAPSULE PO SCH (22:15)
[2016-12-28] MEDS: ZOLPIDEM TARTRATE 10 MG TABLET (PARK CARE ONLY) PO PRN (22:15)
[2016-12-29] MEDS: chlordiazePOXIDE 5 MG CAPSULE PO SCH ×3 (05:49→17:15)
[2016-12-29 10:17] LABS: ANION GAP 7 (8-16); CALCIUM 8.5 mg/dL (8.5-10.1); CO2 30 mmol/L (21-32); CREATININE 2.7 mg/dL (0.7-1.3); GLUCOSE,RANDOM 114 mg/dL (74-106)
[2016-12-29] MEDS: amLODIPine BESYLATE 10 MG TABLET (FP) PO SCH (10:18)
[2016-12-29] MEDS: PRENATAL VITAMINS W/ FOLIC ACID TABLET (FP) PO SCH (10:18)
[2016-12-29] MEDS: NICOTINE 21 MG/24 HOURS TOPICAL PATCH TD SCH (10:19)
[2016-12-29] MEDS: ASPIRIN 81 MG CHEWABLE TABLETS PO SCH (10:19)
--- NOTE | 2016-12-29 10:42 | PN ---
BHS Progress Note (SOAP) Subjective: NAUSEA, SWEATS, INTERRUPTED SLEEP, ANXIETY, TREMORS Objective: 12/29/16 10:41 Vital Signs - 8 hr 12/29/16 12/29/16 12/29/16 03:25 06:18 09:33 Temperature 98.5 F 97.4 F L Pulse Rate 110 H 73 Respiratory 24 18 18 Rate Blood Pressure 142/91 150/91 Laboratory Tests 12/26/16 12/27/16 12/27/16 21:57 08:00 08:00 WBC 6.4 RBC 4.63 Hgb 11.2 L Hct 35.8 MCV 77.3 L MCH 24.3 L MCHC 31.4 L RDW 18.3 H Plt Count 181 D MPV 9.5 Sodium Potassium Chloride Carbon Dioxide Anion Gap BUN Creatinine Creat Clearance w eGFR Random Glucose Calcium Total Bilirubin AST ALT Alkaline Phosphatase Total Protein Albumin Urine Color Lt. yellow Urine Appearance Clear Urine pH 5.0 Ur Specific [place] 1.025 Urine Protein 1+ H Urine Glucose (UA) Negative Urine Ketones Trace H Urine Blood Trace-inta Urine Nitrite Negative Urine Bilirubin 1+ H Urine Urobilinogen 0.2 Urine RBC 2 Urine WBC 3 Ur Epithelial Cells Rare Hyaline Casts 4 Granular Casts 8 Urine Mucus Rare RPR Titer Hepatitis C Antibody 0.1 12/27/16 12/27/16 12/29/16 08:00 08:00 06:00 WBC RBC Hgb Hct MCV MCH MCHC RDW Plt Count MPV Sodium 141 141 Potassium 3.7 3.8 Chloride 105 104 Carbon Dioxide 28 30 Anion Gap 8 7 L BUN 46 H D 28 H D Creatinine 3.5 H D 2.7 H D Creat Clearance w eGFR 17.84 Random Glucose 97 114 H Calcium 8.2 L 8.5 Total Bilirubin 0.4 AST 14 L D ALT 18 D Alkaline Phosphatase 97 Total Protein 6.7 Albumin 3.1 L Urine Color Urine Appearance Urine pH Ur Specific [place] Urine Protein Urine Glucose (UA) Urine Ketones Urine Blood Urine Nitrite Urine Bilirubin Urine Urobilinogen Urine RBC Urine WBC Ur Epithelial Cells Hyaline Casts Granular Casts Urine Mucus RPR Titer Nonreactive Hepatitis C Antibody Assessment: 12/29/16 10:41 WITHDRAWAL SX Plan: CONT DETOX,FLUIDS, ENCOURAGE AMBULATION
[2016-12-29] MEDS: ALBUTEROL SO4 18 GM HFA INHALER IH PRN (18:28)
[2016-12-29] MEDS: ZOLPIDEM TARTRATE 10 MG TABLET (PARK CARE ONLY) PO PRN (22:09)
[2016-12-29] MEDS: THIAMINE HCL 100 MG TABLET (FP) PO SCH (22:09)
[2016-12-29] MEDS: chlordiazePOXIDE HCL 10 MG CAPSULE PO SCH (22:09)
[2016-12-29] MEDS: ATORVASTATIN CA 40 MG TABLET (FP) PO SCH (22:09)
[2016-12-30] MEDS: chlordiazePOXIDE HCL 10 MG CAPSULE PO SCH ×2 (05:48→11:47)
[2016-12-30] MEDS: PRENATAL VITAMINS W/ FOLIC ACID TABLET (FP) PO SCH (09:22)
[2016-12-30] MEDS: ASPIRIN 81 MG CHEWABLE TABLETS PO SCH (09:22)
[2016-12-30] MEDS: amLODIPine BESYLATE 10 MG TABLET (FP) PO SCH (09:22)
[2016-12-30] MEDS: NICOTINE 21 MG/24 HOURS TOPICAL PATCH TD SCH (09:22)
--- NOTE | 2016-12-30 09:29 | DS ---
[facility] Detox Discharge Summary Admission Date: 12/26/16 Discharge Date: 12/30/16 - History Present History: Alcohol Dependence, Pcp Dependence Pertinent Past History: COPD HTN Asthma - Physical Exam Results Vital Signs: Vital Signs Temperature 97.0 F L 12/30/16 06:35 Pulse Rate 72 12/30/16 06:35 Respiratory Rate 18 12/30/16 06:35 Blood Pressure 148/93 12/30/16 06:35 O2 Sat by Pulse Oximetry (%) Pertinent Admission Physical Exam Findings: Withdrawal sx Laboratory Last Values WBC 6.4 K/mm3 (4.0-10.0) 12/27/16 08:00 RBC 4.63 M/mm3 (4.00-5.60) 12/27/16 08:00 Hgb 11.2 GM/dL (11.7-16.9) L 12/27/16 08:00 Hct 35.8 % (35.4-49) 12/27/16 08:00 MCV 77.3 fl (80-96) L 12/27/16 08:00 MCH 24.3 pg (25.7-33.7) L 12/27/16 08:00 MCHC 31.4 g/dl (32.0-35.9) L 12/27/16 08:00 RDW 18.3 % (11.9-15.9) H 12/27/16 08:00 Plt Count 181 K/MM3 (134-434) D 12/27/16 08:00 MPV 9.5 fl (7.5-11.1) 12/27/16 08:00 Sodium 141 mmol/L (136-145) 12/29/16 06:00 Potassium 3.8 mmol/L (3.5-5.1) 12/29/16 06:00 Chloride 104 mmol/L (98-107) 12/29/16 06:00 Carbon Dioxide 30 mmol/L (21-32) 12/29/16 06:00 Anion Gap 7 (8-16) L 12/29/16 06:00 BUN 28 mg/dL (7-18) H D 12/29/16 06:00 Creatinine 2.7 mg/dL (0.7-1.3) H D 12/29/16 06:00 Creat Clearance w eGFR 17.84 (>60) 12/27/16 08:00 Random Glucose 114 mg/dL (74-106) H 12/29/16 06:00 Calcium 8.5 mg/dL (8.5-10.1) 12/29/16 06:00 Total Bilirubin 0.4 mg/dL (0.2-1.0) 12/27/16 08:00 AST 14 U/L (15-37) L D 12/27/16 08:00 ALT 18 U/L (12-78) D 12/27/16 08:00 Alkaline Phosphatase 97 U/L (45-117) 12/27/16 08:00 Total Protein 6.7 g/dl (6.4-8.2) 12/27/16 08:00 Albumin 3.1 g/dl (3.4-5.0) L 12/27/16 08:00 Urine Color Lt. yellow 12/26/16 21:57 Urine Appearance Clear 12/26/16 21:57 Urine pH 5.0 (5.0-8.0) 12/26/16 21:57 Ur Specific [place] 1.025 (1.005-1.025) 12/26/16 21:57 Urine Protein 1+ (NEGATIVE) H 12/26/16 21:57 Urine Glucose (UA) Negative (NEGATIVE) 12/26/16 21:57 Urine Ketones Trace (NEGATIVE) H 12/26/16 21:57 Urine Blood Trace-inta (NEGATIVE) 12/26/16 21:57 Urine Nitrite Negative (NEGATIVE) 12/26/16 21:57 Urine Bilirubin 1+ (NEGATIVE) H 12/26/16 21:57 Urine Urobilinogen 0.2 mg/dL (0.2-1.0) 12/26/16 21:57 Urine RBC 2 /hpf (0-3) 12/26/16 21:57 Urine WBC 3 /hpf (3-5) 12/26/16 21:57 Ur Epithelial Cells Rare /hpf (FEW) 12/26/16 21:57 Hyaline Casts 4 /lpf 12/26/16 21:57 Granular Casts 8 /lpf 12/26/16 21:57 Urine Mucus Rare 12/26/16 21:57 RPR Titer Nonreactive (NONREACTIVE) 12/27/16 08:00 Hepatitis C Antibody 0.1 s/co ratio (0.0-0.9) 12/27/16 08:00 Labs noted. review of outside pharmacy reveals that pt was on metformin in 2013 and HCTZ with amlodipine. CRF most likely due to poorly controlled HTN with DM. - Treatment Hospital Course: Detox Protocol Followed, Detoxed Safely, Responded well, Discharged Condition Good, Rehab Referral Accepted Patient has Accepted a Rehab Referral to: Rehab at [facility] and Health home - Medication Discharge Medications: Ambulatory Orders Albuterol Sulfate Inhaler - [Ventolin HFA Inhaler -] 2 inh PO Q4H PRN #1 inh 10/17 Amlodipine Besylate [Norvasc -] 10 mg PO DAILY #30 tablet 09/10/13 Trazodone HCl [Desyrel -] 100 mg PO HS #30 tablet 10/12/15 Aspirin [ASA -] 81 mg PO DAILY 05/09/16 Atorvastatin Ca [Lipitor] 40 mg PO HS 05/09/16 Folic Acid - 1 mg PO DAILY 05/09/16 Mirtazapine [Remeron -] 15 mg PO HS 05/09/16 Thiamine HCl [Vitamin B-1] 50 mg PO DAILY 05/09/16 Trazodone HCl [Desyrel -] 50 mg PO HS #30 tablet 05/10/16 - Diagnosis (1) Alcohol dependence with uncomplicated withdrawal Current Visit: Yes Status: Chronic (2) Asthma Current Visit: Yes Status: Chronic Qualifiers: Asthma severity: mild intermittent Asthma complication type: uncomplicated Qualified Code(s): J45.20 - Mild intermittent asthma, uncomplicated (3) COPD (chronic obstructive pulmonary disease) Current Visit: Yes Status: Chronic Qualifiers: COPD type: emphysema Emphysema type: other Qualified Code(s): J43.8 - Other emphysema (4) HTN (hypertension) Current Visit: Yes Status: Chronic Qualifiers: Hypertension type: essential hypertension Qualified Code(s): I10 - Essential (primary) hypertension (5) Hypercholesteremia Current Visit: Yes Status: Chronic (6) Nicotine dependence Current Visit: Yes Status: Chronic Qualifiers: Nicotine product type: cigarettes Substance use status: in withdrawal Qualified Code(s): F17.213 - Nicotine dependence, cigarettes, with withdrawal (7) Substance induced mood disorder Current Visit: Yes Status: Acute (8) Substance-induced sleep disorder Current Visit: Yes Status: Acute - AMA Did Patient Leave Against Medical Advice: No
[2016-12-30 09:35] VITALS: BP 155/99; PULSE 73; TEMP 97.5
== END 2016-12-30 11:48 | disposition other institution (70) | DRG 775 ==
LOC: YASAS 20:08 → Y3N 20:54
PROVIDERS: ADMIT Internal Medicine; ATTEND Internal Medicine
PROC: HZ2ZZZZ Detoxification Services for Substance Abuse Treatment (ICD-10-PCS; principal; 2016-12-26)
DX: F10.230 Alcohol dependence with withdrawal, uncomplicated (principal); F16.10 Hallucinogen abuse, uncomplicated; F17.213 Nicotine dependence, cigarettes, with withdrawal; F19.24 Other psychoactive substance dependence with psychoactive substance-induced mood disorder; F19.282 Other psychoactive substance dependence with psychoactive substance-induced sleep disorder; J45.20 Mild intermittent asthma, uncomplicated; J43.8 Other emphysema; E78.00 Pure hypercholesterolemia, unspecified; I12.9 Hypertensive chronic kidney disease with stage 1 through stage 4 chronic kidney disease, or unspecified chronic kidney disease; N18.9 Chronic kidney disease, unspecified; R82.90 Unspecified abnormal findings in urine; Z87.438 Personal history of other diseases of male genital organs
CPT/HCPCS: 36415; 71020-TC; 80048; 80053; 81003; 81015; 85027; 86593; 86803; 93005; 93010

== ENCOUNTER 2016-12-30 11:48 | Inpatient (IN) | payer OTHER ==
[2016-12-30] MEDS ORDERED: MAGNESIUM HYDROX 2400MG/30ML ORAL SUSPENSION 30 ML CUP PO PRN (12:50)
[2016-12-30] MEDS ORDERED: hydrOXYzine PAMOATE 50 MG CAPSULE (FP) PO PRN (12:50)
[2016-12-30] MEDS ORDERED: MAGNESIUM CITRATE 300 ML BOTTLE PO PRN (12:50)
[2016-12-30] MEDS ORDERED: P-EPHED 60MG/TRIPROLIDI 2.5MG TABLET PO PRN (12:50)
[2016-12-30] MEDS ORDERED: IBUPROFEN 400 MG TABLET (FP) PO PRN (12:50)
[2016-12-30] MEDS ORDERED: LOPERAMIDE HCL 2 MG CAPSULE PO PRN (12:50)
[2016-12-30] MEDS ORDERED: ALBUTEROL SO4 18 GM HFA INHALER IH PRN (12:50)
[2016-12-30] MEDS ORDERED: MAG HYDROX/AL HYDROX/SIMETH 30 ML UNIT-DOSE CUP PO PRN (12:50)
[2016-12-30] MEDS ORDERED: NICOTINE POLACRILEX 2 MG GUM BUC PRN (12:50)
[2016-12-30] MEDS ORDERED: MENTHOL/PHENOL 1 EACH UD MM PRN (12:50)
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
--- NOTE | 2016-12-30 16:25 | HP ---
[facility] Rehab Assess/Revision - Admission History Admitted to Rehab from: [facility] [place] Date of Admission to Rehab: 12/30/16 - Vital signs Vital Signs: Vital Signs Period Temp Pulse Resp BP Sys/Nicolas Pulse Ox Last 24 Hr 97.5 F 61 18 149/85 - Findings Detox History & Physical reviewed: Yes Concur with findings: Yes Comments/Additional Findings: transferred from detox to rehab admission as per protocol
[2016-12-30] MEDS: FERROUS SO4 325 MG TABLET (FP) PO SCH (18:25)
[2016-12-30] MEDS: ATORVASTATIN CA 40 MG TABLET (FP) PO SCH (21:58)
[2016-12-30] MEDS: DOCUSATE SODIUM 100 MG CAPSULE (FP) PO SCH (21:58)
[2016-12-30] MEDS: THIAMINE HCL 100 MG TABLET (FP) PO SCH (21:58)
[2016-12-30] MEDS: diphenhydrAMINE HCL 50 MG CAPSULE PO PRN (22:00)
[2016-12-31] MEDS: FERROUS SO4 325 MG TABLET (FP) PO SCH ×3 (07:17→18:03)
[2016-12-31] MEDS: NICOTINE 14 MG/24 HOURS TOPICAL PATCH TD SCH (10:13)
[2016-12-31] MEDS: FLUoxetine HCL 10 MG CAPSULE (FP) PO SCH (10:13)
[2016-12-31] MEDS: amLODIPine BESYLATE 10 MG TABLET (FP) PO SCH (10:13)
[2016-12-31] MEDS: PRENATAL VITAMINS W/ FOLIC ACID TABLET (FP) PO SCH (10:13)
[2016-12-31] MEDS: ASPIRIN 81 MG CHEWABLE TABLETS PO SCH (10:13)
[2016-12-31 13:56] LABS: URINE APPEARANCE CLEAR; URINE BILIRUBIN NEGATIVE (NEGATIVE); URINE BLOOD NEGATIVE (NEGATIVE); URINE COLOR YELLOW; URINE GLUCOSE (UA) 2+ (NEGATIVE); URINE KETONE NEGATIVE (NEGATIVE); URINE LEUK ESTERASE NEGATIVE (NEGATIVE); URINE NITRITE NEGATIVE (NEGATIVE); URINE UROBILINOGEN NEGATIVE mg/dL (0.2-1.0)
[2016-12-31 14:08] LABS: URINE PROTEIN 1+ (NEGATIVE)
[2016-12-31 14:18] LABS: URINE RBC <1 /hpf (0-3); URINE WBC 1 /hpf (3-5)
[2016-12-31] MEDS: THIAMINE HCL 100 MG TABLET (FP) PO SCH (21:57)
[2016-12-31] MEDS: ATORVASTATIN CA 40 MG TABLET (FP) PO SCH (21:57)
[2016-12-31] MEDS: diphenhydrAMINE HCL 50 MG CAPSULE PO PRN (21:57)
[2016-12-31] MEDS: DOCUSATE SODIUM 100 MG CAPSULE (FP) PO SCH (21:57)
[2017-01-01] MEDS: FERROUS SO4 325 MG TABLET (FP) PO SCH ×3 (07:02→17:28)
--- NOTE | 2017-01-01 10:01 | HP ---
[facility] Rehab Assess/Revision - Vital signs Vital Signs: Vital Signs Period Temp Pulse Resp BP Sys/Nicolas Pulse Ox Last 24 Hr 97.5 F 72 18-18 153/99 Inpatient Rehab Admission - Initial Determination Are CD services needed?: Yes Free of communicable disease: Yes Not in need of hospitalization: Yes - Rehab Admission Criteria Comorbidities: Yes Patient is meeting Inpatient Rehab admission criteria:: Yes
[2017-01-01] MEDS: PRENATAL VITAMINS W/ FOLIC ACID TABLET (FP) PO SCH (10:46)
[2017-01-01] MEDS: FLUoxetine HCL 10 MG CAPSULE (FP) PO SCH (10:47)
[2017-01-01] MEDS: amLODIPine BESYLATE 10 MG TABLET (FP) PO SCH (10:47)
[2017-01-01] MEDS: NICOTINE 14 MG/24 HOURS TOPICAL PATCH TD SCH (10:47)
[2017-01-01] MEDS: ASPIRIN 81 MG CHEWABLE TABLETS PO SCH (10:47)
[2017-01-01] MEDS ORDERED: ATORVASTATIN CA 20 MG TABLET (FP) ONE (20:33)
[2017-01-01] MEDS: ATORVASTATIN CA 40 MG TABLET (FP) PO SCH (21:57)
[2017-01-01] MEDS: diphenhydrAMINE HCL 50 MG CAPSULE PO PRN (21:57)
[2017-01-01] MEDS: DOCUSATE SODIUM 100 MG CAPSULE (FP) PO SCH (21:57)
[2017-01-01] MEDS: THIAMINE HCL 100 MG TABLET (FP) PO SCH (21:58)
[2017-01-02] MEDS: FERROUS SO4 325 MG TABLET (FP) PO SCH ×3 (07:15→17:02)
[2017-01-02] MEDS: PRENATAL VITAMINS W/ FOLIC ACID TABLET (FP) PO SCH (10:34)
[2017-01-02] MEDS: ASPIRIN 81 MG CHEWABLE TABLETS PO SCH (10:34)
[2017-01-02] MEDS: FLUoxetine HCL 10 MG CAPSULE (FP) PO SCH (10:34)
[2017-01-02] MEDS: amLODIPine BESYLATE 10 MG TABLET (FP) PO SCH (10:34)
[2017-01-02] MEDS: NICOTINE 14 MG/24 HOURS TOPICAL PATCH TD SCH (11:47)
[2017-01-02] MEDS: ATORVASTATIN CA 40 MG TABLET (FP) PO SCH (21:55)
[2017-01-02] MEDS: DOCUSATE SODIUM 100 MG CAPSULE (FP) PO SCH (21:55)
[2017-01-02] MEDS: THIAMINE HCL 100 MG TABLET (FP) PO SCH (21:55)
[2017-01-02] MEDS: diphenhydrAMINE HCL 50 MG CAPSULE PO PRN (21:56)
[2017-01-03] MEDS: FERROUS SO4 325 MG TABLET (FP) PO SCH ×3 (07:01→16:52)
[2017-01-03] MEDS: guaiFENesin/D-METHORPHAN HB 10 ML UNIT-DOSE CUPS PO PRN (07:49)
[2017-01-03] MEDS: ASPIRIN 81 MG CHEWABLE TABLETS PO SCH (10:38)
[2017-01-03] MEDS: FLUoxetine HCL 10 MG CAPSULE (FP) PO SCH (10:38)
[2017-01-03] MEDS: NICOTINE 14 MG/24 HOURS TOPICAL PATCH TD SCH (10:38)
[2017-01-03] MEDS: amLODIPine BESYLATE 10 MG TABLET (FP) PO SCH (10:38)
[2017-01-03] MEDS: PRENATAL VITAMINS W/ FOLIC ACID TABLET (FP) PO SCH (10:38)
[2017-01-03] MEDS: ATORVASTATIN CA 40 MG TABLET (FP) PO SCH (21:38)
[2017-01-03] MEDS: DOCUSATE SODIUM 100 MG CAPSULE (FP) PO SCH (21:38)
[2017-01-03] MEDS: diphenhydrAMINE HCL 50 MG CAPSULE PO PRN (21:38)
[2017-01-03] MEDS: THIAMINE HCL 100 MG TABLET (FP) PO SCH (21:38)
[2017-01-04] MEDS: FERROUS SO4 325 MG TABLET (FP) PO SCH ×3 (07:32→17:09)
[2017-01-04] MEDS: NICOTINE 14 MG/24 HOURS TOPICAL PATCH TD SCH (10:21)
[2017-01-04] MEDS: PRENATAL VITAMINS W/ FOLIC ACID TABLET (FP) PO SCH (10:21)
[2017-01-04] MEDS: amLODIPine BESYLATE 10 MG TABLET (FP) PO SCH (10:21)
[2017-01-04] MEDS: FLUoxetine HCL 10 MG CAPSULE (FP) PO SCH (10:21)
[2017-01-04] MEDS: ASPIRIN 81 MG CHEWABLE TABLETS PO SCH (10:21)
[2017-01-04] MEDS: guaiFENesin/D-METHORPHAN HB 10 ML UNIT-DOSE CUPS PO PRN ×2 (10:26→21:53)
[2017-01-04] MEDS: THIAMINE HCL 100 MG TABLET (FP) PO SCH (21:52)
[2017-01-04] MEDS: DOCUSATE SODIUM 100 MG CAPSULE (FP) PO SCH (21:52)
[2017-01-04] MEDS: ATORVASTATIN CA 40 MG TABLET (FP) PO SCH (21:52)
[2017-01-04] MEDS: diphenhydrAMINE HCL 50 MG CAPSULE PO PRN (21:53)
[2017-01-05] MEDS: FERROUS SO4 325 MG TABLET (FP) PO SCH ×3 (07:12→16:43)
[2017-01-05] MEDS: ASPIRIN 81 MG CHEWABLE TABLETS PO SCH (10:37)
[2017-01-05] MEDS: amLODIPine BESYLATE 10 MG TABLET (FP) PO SCH (10:37)
[2017-01-05] MEDS: PRENATAL VITAMINS W/ FOLIC ACID TABLET (FP) PO SCH (10:37)
[2017-01-05] MEDS: FLUoxetine HCL 10 MG CAPSULE (FP) PO SCH (10:37)
[2017-01-05] MEDS: NICOTINE 14 MG/24 HOURS TOPICAL PATCH TD SCH (10:38)
[2017-01-05] MEDS: THIAMINE HCL 100 MG TABLET (FP) PO SCH (21:52)
[2017-01-05] MEDS: DOCUSATE SODIUM 100 MG CAPSULE (FP) PO SCH (21:52)
[2017-01-05] MEDS: ATORVASTATIN CA 40 MG TABLET (FP) PO SCH (21:52)
[2017-01-05] MEDS: diphenhydrAMINE HCL 50 MG CAPSULE PO PRN (21:53)
[2017-01-06] MEDS: FERROUS SO4 325 MG TABLET (FP) PO SCH ×3 (07:28→17:05)
[2017-01-06] MEDS: ASPIRIN 81 MG CHEWABLE TABLETS PO SCH (10:30)
[2017-01-06] MEDS: PRENATAL VITAMINS W/ FOLIC ACID TABLET (FP) PO SCH (10:30)
[2017-01-06] MEDS: amLODIPine BESYLATE 10 MG TABLET (FP) PO SCH (10:30)
[2017-01-06] MEDS: FLUoxetine HCL 10 MG CAPSULE (FP) PO SCH (10:30)
[2017-01-06] MEDS: NICOTINE 14 MG/24 HOURS TOPICAL PATCH TD SCH (10:30)
--- NOTE | 2017-01-06 12:56 | PN ---
[facility] Progress Note Note: patient reporting conintued congestion/cough since admission reviewed labs, cxr COPD otehrwise neg, will give scheduled sudafed and gaufenisin, water repeat labs, was dehydarted
[2017-01-06] MEDS: guaiFENesin/D-METHORPHAN HB 10 ML UNIT-DOSE CUPS PO SCH ×2 (14:26→18:55)
[2017-01-06] MEDS ORDERED: AMOX TR/POT CLAV 500MG/125MG TABLETS (FP) PO ONE (14:27)
[2017-01-06] MEDS: PSEUDOEPHEDRINE HCL 30 MG TABLET PO SCH ×2 (15:01→18:55)
[2017-01-06] MEDS: AMOX TR/POT CLAV 500MG/125MG TABLETS (FP) PO SCH (17:05)
[2017-01-06] MEDS: THIAMINE HCL 100 MG TABLET (FP) PO SCH (21:46)
[2017-01-06] MEDS: diphenhydrAMINE HCL 50 MG CAPSULE PO PRN (21:46)
[2017-01-06] MEDS: ATORVASTATIN CA 40 MG TABLET (FP) PO SCH (21:46)
[2017-01-06] MEDS: DOCUSATE SODIUM 100 MG CAPSULE (FP) PO SCH (21:46)
[2017-01-07] MEDS: PSEUDOEPHEDRINE HCL 30 MG TABLET PO SCH ×4 (01:00→18:02)
[2017-01-07] MEDS: guaiFENesin/D-METHORPHAN HB 10 ML UNIT-DOSE CUPS PO SCH ×4 (01:00→18:02)
[2017-01-07] MEDS: AMOX TR/POT CLAV 500MG/125MG TABLETS (FP) PO SCH ×2 (07:04→18:02)
[2017-01-07] MEDS: FERROUS SO4 325 MG TABLET (FP) PO SCH ×3 (07:04→18:02)
[2017-01-07] MEDS: NICOTINE 14 MG/24 HOURS TOPICAL PATCH TD SCH (10:24)
[2017-01-07] MEDS: amLODIPine BESYLATE 10 MG TABLET (FP) PO SCH (10:24)
[2017-01-07] MEDS: FLUoxetine HCL 10 MG CAPSULE (FP) PO SCH (10:24)
[2017-01-07] MEDS: PRENATAL VITAMINS W/ FOLIC ACID TABLET (FP) PO SCH (10:24)
[2017-01-07] MEDS: ASPIRIN 81 MG CHEWABLE TABLETS PO SCH (10:24)
[2017-01-07 13:47] LABS: BASOPHIL 0.5 % (0-2.0); EOSINOPHIL 2.4 % (0-4.5); MCH 23.8 pg (25.7-33.7); MCHC 30.7 g/dl (32.0-35.9); MEAN CELL VOLUME 77.4 fl (80-96); MEAN PLT VOLUME 9.3 fl (7.5-11.1); NEUTROPHILS 71.6 % (42.8-82.8); PLATELET COUNT 238 K/MM3 (134-434); RDW 18.1 % (11.9-15.9)
[2017-01-07 13:58] LABS: ANION GAP 11 (8-16); CALCIUM 8.4 mg/dL (8.5-10.1); CO2 26 mmol/L (21-32); GLUCOSE,RANDOM 141 mg/dL (74-106)
[2017-01-07 14:00] LABS: CREATININE 2.3 mg/dL (0.7-1.3)
[2017-01-07] MEDS: THIAMINE HCL 100 MG TABLET (FP) PO SCH (21:46)
[2017-01-07] MEDS: ATORVASTATIN CA 40 MG TABLET (FP) PO SCH (21:46)
[2017-01-07] MEDS: DOCUSATE SODIUM 100 MG CAPSULE (FP) PO SCH (21:46)
[2017-01-07] MEDS: diphenhydrAMINE HCL 50 MG CAPSULE PO PRN (21:47)
[2017-01-08] MEDS: PSEUDOEPHEDRINE HCL 30 MG TABLET PO SCH ×4 (01:45→20:39)
[2017-01-08] MEDS: guaiFENesin/D-METHORPHAN HB 10 ML UNIT-DOSE CUPS PO SCH ×4 (01:45→20:39)
[2017-01-08] MEDS: AMOX TR/POT CLAV 500MG/125MG TABLETS (FP) PO SCH ×2 (07:09→16:44)
[2017-01-08] MEDS: FERROUS SO4 325 MG TABLET (FP) PO SCH ×3 (07:09→16:44)
[2017-01-08] MEDS: NICOTINE 14 MG/24 HOURS TOPICAL PATCH TD SCH (10:06)
[2017-01-08] MEDS: PRENATAL VITAMINS W/ FOLIC ACID TABLET (FP) PO SCH (10:06)
[2017-01-08] MEDS: ASPIRIN 81 MG CHEWABLE TABLETS PO SCH (10:06)
[2017-01-08] MEDS: amLODIPine BESYLATE 10 MG TABLET (FP) PO SCH (10:06)
[2017-01-08] MEDS: FLUoxetine HCL 10 MG CAPSULE (FP) PO SCH (10:06)
[2017-01-08] MEDS ORDERED: ATORVASTATIN CA 20 MG TABLET (FP) ONE (20:10)
[2017-01-08] MEDS: ATORVASTATIN CA 40 MG TABLET (FP) PO SCH (21:55)
[2017-01-08] MEDS: THIAMINE HCL 100 MG TABLET (FP) PO SCH (21:55)
[2017-01-08] MEDS: diphenhydrAMINE HCL 50 MG CAPSULE PO PRN (21:55)
[2017-01-08] MEDS: DOCUSATE SODIUM 100 MG CAPSULE (FP) PO SCH (21:55)
[2017-01-09] MEDS: guaiFENesin/D-METHORPHAN HB 10 ML UNIT-DOSE CUPS PO SCH ×4 (00:59→18:00)
[2017-01-09] MEDS: PSEUDOEPHEDRINE HCL 30 MG TABLET PO SCH ×4 (00:59→18:00)
[2017-01-09] MEDS: FERROUS SO4 325 MG TABLET (FP) PO SCH ×3 (07:40→18:00)
[2017-01-09] MEDS: AMOX TR/POT CLAV 500MG/125MG TABLETS (FP) PO SCH ×2 (07:40→18:00)
[2017-01-09] MEDS: PRENATAL VITAMINS W/ FOLIC ACID TABLET (FP) PO SCH (10:34)
[2017-01-09] MEDS: ASPIRIN 81 MG CHEWABLE TABLETS PO SCH (10:34)
[2017-01-09] MEDS: FLUoxetine HCL 10 MG CAPSULE (FP) PO SCH (10:34)
[2017-01-09] MEDS: amLODIPine BESYLATE 10 MG TABLET (FP) PO SCH (10:34)
[2017-01-09] MEDS: NICOTINE 14 MG/24 HOURS TOPICAL PATCH TD SCH (10:34)
[2017-01-09] MEDS: THIAMINE HCL 100 MG TABLET (FP) PO SCH (21:42)
[2017-01-09] MEDS: ATORVASTATIN CA 40 MG TABLET (FP) PO SCH (21:42)
[2017-01-09] MEDS: diphenhydrAMINE HCL 50 MG CAPSULE PO PRN (21:42)
[2017-01-09] MEDS: DOCUSATE SODIUM 100 MG CAPSULE (FP) PO SCH (21:42)
[2017-01-10] MEDS: PSEUDOEPHEDRINE HCL 30 MG TABLET PO SCH ×4 (01:39→20:46)
[2017-01-10] MEDS: guaiFENesin/D-METHORPHAN HB 10 ML UNIT-DOSE CUPS PO SCH ×4 (01:39→20:47)
[2017-01-10] MEDS: FERROUS SO4 325 MG TABLET (FP) PO SCH ×3 (07:18→16:52)
[2017-01-10] MEDS: AMOX TR/POT CLAV 500MG/125MG TABLETS (FP) PO SCH ×2 (07:18→16:52)
[2017-01-10] MEDS: NICOTINE 14 MG/24 HOURS TOPICAL PATCH TD SCH (10:21)
[2017-01-10] MEDS: PRENATAL VITAMINS W/ FOLIC ACID TABLET (FP) PO SCH (10:21)
[2017-01-10] MEDS: FLUoxetine HCL 10 MG CAPSULE (FP) PO SCH (10:21)
[2017-01-10] MEDS: amLODIPine BESYLATE 10 MG TABLET (FP) PO SCH (10:21)
[2017-01-10] MEDS: ASPIRIN 81 MG CHEWABLE TABLETS PO SCH (10:21)
[2017-01-10] MEDS: ACETAMINOPHEN 325 MG TABLET (FP) PO PRN (16:52)
[2017-01-10] MEDS: THIAMINE HCL 100 MG TABLET (FP) PO SCH (21:44)
[2017-01-10] MEDS: DOCUSATE SODIUM 100 MG CAPSULE (FP) PO SCH (21:44)
[2017-01-10] MEDS: ATORVASTATIN CA 40 MG TABLET (FP) PO SCH (21:45)
[2017-01-10] MEDS ORDERED: ATORVASTATIN CA 20 MG TABLET (FP) ONE (21:45)
[2017-01-10] MEDS: diphenhydrAMINE HCL 50 MG CAPSULE PO PRN (21:45)
[2017-01-11] MEDS: guaiFENesin/D-METHORPHAN HB 10 ML UNIT-DOSE CUPS PO SCH ×4 (01:59→18:20)
[2017-01-11] MEDS: PSEUDOEPHEDRINE HCL 30 MG TABLET PO SCH ×4 (01:59→18:20)
[2017-01-11] MEDS: FERROUS SO4 325 MG TABLET (FP) PO SCH ×3 (07:14→16:52)
[2017-01-11] MEDS: AMOX TR/POT CLAV 500MG/125MG TABLETS (FP) PO SCH ×2 (07:14→16:52)
[2017-01-11] MEDS: PRENATAL VITAMINS W/ FOLIC ACID TABLET (FP) PO SCH (10:25)
[2017-01-11] MEDS: NICOTINE 14 MG/24 HOURS TOPICAL PATCH TD SCH (10:25)
[2017-01-11] MEDS: FLUoxetine HCL 10 MG CAPSULE (FP) PO SCH (10:25)
[2017-01-11] MEDS: amLODIPine BESYLATE 10 MG TABLET (FP) PO SCH (10:25)
[2017-01-11] MEDS: ASPIRIN 81 MG CHEWABLE TABLETS PO SCH (10:25)
[2017-01-11] MEDS: ACETAMINOPHEN 325 MG TABLET (FP) PO PRN (10:26)
[2017-01-11] MEDS: DOCUSATE SODIUM 100 MG CAPSULE (FP) PO SCH (21:48)
[2017-01-11] MEDS: diphenhydrAMINE HCL 50 MG CAPSULE PO PRN (21:48)
[2017-01-11] MEDS: ATORVASTATIN CA 40 MG TABLET (FP) PO SCH (21:48)
[2017-01-11] MEDS: THIAMINE HCL 100 MG TABLET (FP) PO SCH (21:48)
[2017-01-12] MEDS: PSEUDOEPHEDRINE HCL 30 MG TABLET PO SCH ×4 (01:04→20:21)
[2017-01-12] MEDS: guaiFENesin/D-METHORPHAN HB 10 ML UNIT-DOSE CUPS PO SCH ×4 (01:04→20:21)
[2017-01-12] MEDS: AMOX TR/POT CLAV 500MG/125MG TABLETS (FP) PO SCH ×2 (07:19→16:43)
[2017-01-12] MEDS: FERROUS SO4 325 MG TABLET (FP) PO SCH ×3 (07:19→16:43)
[2017-01-12] MEDS: FLUoxetine HCL 10 MG CAPSULE (FP) PO SCH (10:39)
[2017-01-12] MEDS: amLODIPine BESYLATE 10 MG TABLET (FP) PO SCH (10:39)
[2017-01-12] MEDS: ASPIRIN 81 MG CHEWABLE TABLETS PO SCH (10:39)
[2017-01-12] MEDS: PRENATAL VITAMINS W/ FOLIC ACID TABLET (FP) PO SCH (10:40)
[2017-01-12] MEDS: NICOTINE 14 MG/24 HOURS TOPICAL PATCH TD SCH (11:34)
[2017-01-12] MEDS: THIAMINE HCL 100 MG TABLET (FP) PO SCH (21:47)
[2017-01-12] MEDS: ATORVASTATIN CA 40 MG TABLET (FP) PO SCH (21:47)
[2017-01-12] MEDS: DOCUSATE SODIUM 100 MG CAPSULE (FP) PO SCH (21:47)
[2017-01-12] MEDS: diphenhydrAMINE HCL 50 MG CAPSULE PO PRN (21:47)
[2017-01-13] MEDS: PSEUDOEPHEDRINE HCL 30 MG TABLET PO SCH ×4 (00:35→18:00)
[2017-01-13] MEDS: guaiFENesin/D-METHORPHAN HB 10 ML UNIT-DOSE CUPS PO SCH ×4 (00:35→18:00)
[2017-01-13] MEDS: AMOX TR/POT CLAV 500MG/125MG TABLETS (FP) PO SCH ×2 (07:05→18:00)
[2017-01-13] MEDS: FERROUS SO4 325 MG TABLET (FP) PO SCH ×3 (07:05→18:00)
[2017-01-13] MEDS: NICOTINE 14 MG/24 HOURS TOPICAL PATCH TD SCH (10:50)
[2017-01-13] MEDS: ASPIRIN 81 MG CHEWABLE TABLETS PO SCH (10:50)
[2017-01-13] MEDS: amLODIPine BESYLATE 10 MG TABLET (FP) PO SCH (10:50)
[2017-01-13] MEDS: FLUoxetine HCL 10 MG CAPSULE (FP) PO SCH (10:50)
[2017-01-13] MEDS: PRENATAL VITAMINS W/ FOLIC ACID TABLET (FP) PO SCH (10:50)
[2017-01-13] MEDS: diphenhydrAMINE HCL 50 MG CAPSULE PO PRN (21:56)
[2017-01-13] MEDS: THIAMINE HCL 100 MG TABLET (FP) PO SCH (21:56)
[2017-01-13] MEDS: DOCUSATE SODIUM 100 MG CAPSULE (FP) PO SCH (21:56)
[2017-01-13] MEDS: ATORVASTATIN CA 40 MG TABLET (FP) PO SCH (21:56)
[2017-01-14] MEDS: guaiFENesin/D-METHORPHAN HB 10 ML UNIT-DOSE CUPS PO SCH ×2 (01:45→06:32)
[2017-01-14] MEDS: PSEUDOEPHEDRINE HCL 30 MG TABLET PO SCH ×2 (01:46→06:32)
[2017-01-14] MEDS: FERROUS SO4 325 MG TABLET (FP) PO SCH (07:04)
[2017-01-14] MEDS: AMOX TR/POT CLAV 500MG/125MG TABLETS (FP) PO SCH (07:04)
[2017-01-14 07:09] VITALS: TEMP 97.8
--- NOTE | 2017-01-14 10:09 | PN ---
Psychiatric Progress Note Vital Signs: Vital Signs Period Temp Pulse Resp BP Sys/Nicolas Pulse Ox Last 24 Hr 97.8 F 75 18-18 149/94 Date of Session: 01/14/17 Chief Complaint:: discharge visit HPI: Patient has addressed alcohol, nicotine dependence comorbid substance induced mood disorder. ROS: Hypertension, COPD, arthritis, hypercholesterolemia, Gout left knee medically managed. Current Medications: Active Medications Generic Name Dose Route Start Last Admin Trade Name Freq PRN Reason Stop Dose Admin Acetaminophen 650 mg 12/30/16 12:50 01/11/17 10:26 Tylenol - PO 650 mg Q4H PRN Administration FEVER OR PAIN Al Hydroxide/Mg Hydroxide 30 ml 12/30/16 12:50 01/02/17 15:13 Mylanta Oral Suspension - PO 30 ml Q6H PRN Administration DYSPEPSIA Albuterol Sulfate 2 puff 12/30/16 12:50 12/31/16 07:17 Ventolin Hfa Inhaler - IH 2 puff Q4H PRN Administration ASTHMA Amlodipine Besylate 10 mg 12/31/16 10:00 01/13/17 10:50 Norvasc - PO 10 mg DAILY NAVI Administration Amoxicillin/Clavulanate Potassium 1 tab 01/06/17 17:30 01/14/17 07:04 Augmentin - 500mg Tablet PO 1 tab BID@0800,1730 NAVI Administration Aspirin 81 mg 12/31/16 10:00 01/13/17 10:50 Asa - PO 81 mg DAILY NAVI Administration Atorvastatin Calcium 40 mg 12/30/16 22:00 01/13/17 21:56 Lipitor - PO 40 mg HS NAVI Administration Diphenhydramine HCl 50 mg 12/30/16 12:50 01/13/17 21:56 Benadryl - PO 50 mg HSMR1 PRN Administration FOR ITCHING Docusate Sodium 300 mg 12/30/16 22:00 01/13/17 21:56 Colace - PO 300 mg HS NAVI Administration Eucalyptus/Menthol/Phenol/Sorbitol 1 each 12/30/16 12:50 Cepastat Lozenge - MM Q4H PRN SORE THROAT Ferrous Sulfate 325 mg 12/30/16 17:30 01/14/17 07:04 Feosol - PO 325 mg TIDCM NAVI Administration Fluoxetine HCl 10 mg 12/31/16 10:00 01/13/17 10:50 Prozac - PO 10 mg DAILY NAVI Administration Guaifenesin 10 ml 01/06/17 13:00 01/14/17 06:32 Robitussin Dm - PO 10 ml Q6H NAVI Administration Hydroxyzine Pamoate 50 mg 12/30/16 12:50 Vistaril - PO Q4H PRN AGITATION Loperamide HCl 4 mg 12/30/16 12:50 Imodium - PO Q6H PRN DIARRHEA Magnesium Hydroxide 30 ml 12/30/16 12:50 Milk Of Magnesia - PO DAILY PRN CONSTIPATION Nicotine 14 mg 12/31/16 10:00 01/13/17 10:50 Nicoderm Patch - TD Not Given DAILY NAVI Nicotine Polacrilex 2 mg 12/30/16 12:50 Nicorette Gum - BUC Q2H PRN NICOTINE REPLACEMENT RX Multivit/Folic Acid/Iron 1 tab 12/31/16 10:00 01/13/17 10:50 Vitamins ([facility]) - PO 1 tab DAILY NAVI Administration Pseudoephedrine HCl 30 mg 01/06/17 13:00 01/14/17 06:32 Sudafed - PO 30 mg Q6H NAVI Administration Thiamine HCl 100 mg 12/30/16 22:00 01/13/17 21:56 Vitamin B1 - PO 100 mg HS NAVI Administration Current Side Effect: No Lab tests ordered: No Lab tests reviewed: Yes Provider note:: Patient has completed today his treatment and met his goals, will continue to address his issues at [facility]. He gained insights into his addiction, reports has been feeling much better since in rehabilitation program, he responded well to Prozac, reports he is hopefull and more energetic, scripts provided, patient was encouraged to continue maintain abstinence and utilize all supports available to prevent relapses. Patient is stable for discharge today. Total face to face time:: 35 Mental Status Exam - Mental Status Exam Alert and Oriented to: Time, Place, Person Cognitive Function: Good Patient Appearance: Well Groomed Mood: Hopeful Affect: Appropriate, Mood Congruent Patient Behavior: Appropriate, Cooperative Speech Pattern: Clear, Appropriate Voice Loudness: Normal Thought Process: Intact, Goal Oriented Thought Disorder: Not Present Hallucinations: Denies Suicidal Ideation: Denies Homicidal Ideation: Denies Insight/Judgement: Fair Sleep: Fair Appetite: Good Muscle strength/Tone: Normal Gait/Station: Normal Psychiatric Treatment Plan - Problem List (1) Alcohol dependence Current Visit: No (2) Substance induced mood disorder Current Visit: No (3) Nicotine dependence Current Visit: No Qualifiers: Nicotine product type: cigarettes Substance use status: in withdrawal Qualified Code(s): F17.213 - Nicotine dependence, cigarettes, with withdrawal; F17.213 - Nicotine dependence, cigarettes, with withdrawal
[2017-01-14] MEDS: PRENATAL VITAMINS W/ FOLIC ACID TABLET (FP) PO SCH (10:21)
[2017-01-14] MEDS: ASPIRIN 81 MG CHEWABLE TABLETS PO SCH (10:21)
[2017-01-14] MEDS: FLUoxetine HCL 10 MG CAPSULE (FP) PO SCH (10:21)
[2017-01-14] MEDS: NICOTINE 14 MG/24 HOURS TOPICAL PATCH TD SCH (10:21)
[2017-01-14] MEDS: amLODIPine BESYLATE 10 MG TABLET (FP) PO SCH (10:21)
[2017-01-14 11:53] VITALS: BP 158/96; PULSE 77
== END 2017-01-14 11:00 | disposition home or self-care (01) | DRG 772 ==
LOC: YASAS 11:48 → Y5N 11:49
PROVIDERS: ADMIT Psychiatry & Neurology Psychiatry; ATTEND Psychiatry & Neurology Psychiatry
PROC: HZ42ZZZ Group Counseling for Substance Abuse Treatment, Cognitive-Behavioral (ICD-10-PCS; principal; 2016-12-30)
DX: F10.20 Alcohol dependence, uncomplicated (principal); F17.213 Nicotine dependence, cigarettes, with withdrawal; F19.24 Other psychoactive substance dependence with psychoactive substance-induced mood disorder
CPT/HCPCS: 36415; 80048; 81003; 81015; 85025

== ENCOUNTER 2017-09-23 17:48 | Inpatient (IN) | payer OTHER ==
[2017-09-23 18:13] VITALS: BMI 25.1
--- NOTE | 2017-09-23 21:26 | HP ---
CIWA Score - CIWA Score Nausea/Vomitin Muscle Tremors: 4-Moderate,w/Arms Extend Anxiety: 3 Agitation: 3 Paroxysmal Sweats: No Perspiration Orientation: 0-Oriented Tacttile Disturbances: 0-None Auditory Disturbances: 0-None Visual Disturbances: 0-None Headache: 3-Moderate CIWA-Ar Total Score: 16 Admission [facility] - HPI Chief Complaint: Alcohol withdrawal symptoms Allergies/Adverse Reactions: Allergies Allergy/AdvReac Type Severity Reaction Status Date / Time No Known Allergies Allergy Verified 09/23/17 21:38 History of Present Illness: 62 years old male with 50 years history of alcohol dependence is seeking admission to detox. Patient has been in previous detox and reports 2 years of sobriety. He has medical history of HTN, asthma hypercholesterolemia, depression , COPD and syphilis. He denies suicide attempt and suicidal ideation at this time. His drug screeen was positive for PCP. Exam Limitations: No Limitations - Ebola screening Have you traveled outside of the country in the last 21 days: No (N) Have you had contact with anyone from an Ebola affected area: No Have you been sick,other than usual withdrawal symptoms: No Do you have a fever: No - Review of Systems Constitutional: Chills, Loss of Appetite, Malaise, Weakness EENT: reports: No Symptoms Reported Respiratory: reports: Wheezing Cardiac: reports: No Symptoms Reported GI: reports: Diarrhea (x 2), Nausea, Poor Appetite, Poor Fluid Intake : reports: No Symptoms Reported Musculoskeletal: reports: Back Pain, Muscle Pain, Muscle Weakness Integumentary: reports: Dryness, Flushing Neuro: reports: Headache, Tremors Endocrine: reports: No Symptoms Reported Hematology: reports: No Symptoms Reported Psychiatric: reports: Anxious, Depressed Other Systems: Reviewed and Negative Patient History - Patient Medical History Hx Anemia: No Hx Asthma: Yes (Albuterol) Hx Chronic Obstructive Pulmonary Disease (COPD): Yes (Albuterol) Hx Cancer: No Hx Cardiac Disorders: No Hx Congestive Heart Failure: No Hx Hypertension: Yes ( Amlodipine) Hx Hypercholesterolemia: Yes Hx Pacemaker: No HX Cerebrovascular Accident: No Hx Seizures: No Hx Dementia: No Hx Diabetes: No Hx Gastrointestinal Disorders: No Hx Liver Disease: No Hx Genitourinary Disorders: No Hx Sexually Transmitted Disorders: Yes (Syphilis (treated 1981)) Hx Renal Disease (ESRD): No Hx Thyroid Disease: No Hx Human Immunodeficiency Virus (HIV): No (Negative ) Hx Hepatitis C: No Hx Depression: Yes (Prozac) Hx Suicide Attempt: No Hx Bipolar Disorder: No Hx Schizophrenia: No - Patient Surgical History Past Surgical History: Yes Hx Neurologic Surgery: No Hx Cataract Extraction: No Hx Cardiac Surgery: No Hx Lung Surgery: No Hx Breast Surgery: No Hx Breast Biopsy: No Hx Abdominal Surgery: No Hx Appendectomy: No Hx Cholecystectomy: No Hx Genitourinary Surgery: No Hx Section: No Hx Orthopedic Surgery: Yes (right ankle surgery 1979) Anesthesia Reaction: No - PPD History Previous Implant?: No (PPD POSITIVE 1989- Treated with INH and Vit. B12) Results: C-x-ray 12/29 PPD to be Administered?: No - Reproductive History Patient is a Female of Child Bearing Age (11 -55 yrs old): No (MALE) - Smoking Cessation Smoking history: Current every day smoker Have you smoked in the past 12 months: Yes Aproximately how many cigarettes per day: 20 Cigars Per Day: 0 Hx Chewing Tobacco Use: No Initiated information on smoking cessation: Yes 'Breaking Loose' booklet given: 09/23/17 - Substance & Tx. History Hx Alcohol Use: Yes Hx Substance Use: Yes (K2) Hx Substance Use Treatment: Yes ([facility]) - Substances Abused Alcohol Route: Oral Frequency: Daily Amount used: VODKA- 2 PINTS Age of first use: 9 Date of Last Use: 09/23/17 Family Disease History - Family Disease History Family Disease History: Other: Father (alcohol,), Mother ( alcohol.) Admission Physical Exam S - Vital Signs Vital Signs: Vital Signs - 24 hr 09/23/17 18:07 Temperature 98.7 F Pulse Rate 79 Respiratory 18 Rate Blood Pressure 129/76 - Physical General Appearance: Yes: Moderate Distress, Alcohol on Breath, Tremorous, Sweating, Anxious HEENTM: Yes: EOMI, Normal ENT Inspection, Normocephalic, Normal Voice, FER Respiratory: Yes: Lungs Clear, Normal Breath Sounds, No Respiratory Distress Neck: Yes: Supple Breast: Yes: Breast Exam Deferred Cardiology: Yes: Regular Rhythm, Regular Rate, S1, S2 Abdominal: Yes: Normal Bowel Sounds, Soft Genitourinary: Yes: Within Normal Limits Back: Yes: Normal Inspection Musculoskeletal: Yes: Back pain, Muscle Pain Extremities: Yes: Tremors Neurological: Yes: Alert, Normal Mood/Affect Integumentary: Yes: Dry Lymphatic: Yes: Within Normal Limits - Diagnostic (1) Alcohol dependence with uncomplicated withdrawal Current Visit: Yes Status: Chronic (2) Asthma Current Visit: No Status: Chronic Qualifiers: Asthma severity: mild intermittent Asthma complication type: uncomplicated Qualified Code(s): J45.20 - Mild intermittent asthma, uncomplicated (3) COPD (chronic obstructive pulmonary disease) Current Visit: Yes Status: Chronic Qualifiers: COPD type: emphysema Emphysema type: other Qualified Code(s): J43.8 - Other emphysema (4) HTN (hypertension) Current Visit: Yes Status: Chronic Qualifiers: Hypertension type: essential hypertension Qualified Code(s): I10 - Essential (primary) hypertension (5) Hypercholesteremia Current Visit: Yes Status: Chronic (6) Nicotine dependence Current Visit: Yes Status: Chronic Qualifiers: Nicotine product type: cigarettes Substance use status: in withdrawal Qualified Code(s): F17.213 - Nicotine dependence, cigarettes, with withdrawal (7) PCP (phencyclidine) abuse Current Visit: Yes Status: Chronic (8) Depression Current Visit: Yes Status: Chronic Qualifiers: Depression Type: dysthymia Qualified Code(s): F34.1 - Dysthymic disorder BHS Breath Alcohol Content Breath Alcohol Content: 0.064 Urine Drug Screen - Results Drug Screen Negative: Yes Urine Drug Screen Results: PCP-Phencyclidine
[2017-09-23] MEDS ORDERED: MAG HYDROX/AL HYDROX/SIMETH 30 ML UNIT-DOSE CUP PO PRN (21:45)
[2017-09-23] MEDS ORDERED: NICOTINE POLACRILEX 2 MG GUM BC PRN (21:45)
[2017-09-23] MEDS ORDERED: IBUPROFEN 400 MG TABLET (FP) PO PRN (21:45)
[2017-09-23] MEDS ORDERED: chlordiazePOXIDE HCL 25 MG CAPSULE PO PRN (21:45)
[2017-09-23] MEDS ORDERED: guaiFENesin/D-METHORPHAN HB 10 ML UNIT-DOSE CUPS PO PRN (21:45)
[2017-09-23] MEDS ORDERED: P-EPHED 60MG/TRIPROLIDI 2.5MG TABLET PO PRN (21:45)
[2017-09-23] MEDS ORDERED: MAGNESIUM CITRATE 300 ML BOTTLE PO PRN (21:45)
[2017-09-23] MEDS ORDERED: MENTHOL/PHENOL 1 EACH UD MM PRN (21:45)
[2017-09-23] MEDS ORDERED: ACETAMINOPHEN 325 MG TABLET (FP) PO PRN (21:45)
[2017-09-23] MEDS ORDERED: MAGNESIUM HYDROX 2400MG/30ML ORAL SUSPENSION 30 ML CUP PO PRN (21:45)
[2017-09-23] MEDS ORDERED: LOPERAMIDE HCL 2 MG CAPSULE PO PRN (21:45)
[2017-09-23] MEDS ORDERED: ALBUTEROL SO4 18 GM HFA INHALER IH PRN (21:46)
[2017-09-23] MEDS ORDERED: MELATONIN 5 MG TABLETS PO PRN (22:00)
[2017-09-24] MEDS: chlordiazePOXIDE HCL 25 MG CAPSULE PO SCH ×5 (01:45→22:28)
[2017-09-24] MEDS: THIAMINE HCL 100 MG TABLET (FP) PO SCH ×2 (01:46→22:45)
[2017-09-24] MEDS: ATORVASTATIN CA 40 MG TABLET (FP) PO SCH ×2 (01:46→22:27)
[2017-09-24] MEDS: FERROUS SO4 325 MG TABLET (FP) PO SCH ×3 (07:58→17:28)
--- NOTE | 2017-09-24 09:55 | CONSULT ---
[facility] Psychiatric Consult - Data Date of interview: 09/24/17 Admission source: [facility] Identifying data: This is 62 years old male, , homeless, unemployed, on PA, with no psychiatric hospitalization history, with 50 years history of alcohol dependence, PCP abuse, is seeking admission to detox. Patient has been in previous detox and reports 2 years of sobriety. Substance Abuse History: - Smoking Cessation. Smoking history: Current every day smoker. Have you smoked in the past 12 months: Yes. Aproximately how many cigarettes per day: 20. Cigars Per Day: 0. Hx Chewing Tobacco Use: No. Initiated information on smoking cessation: Yes. 'Breaking Loose' booklet given : 09/23/17. - Substance & Tx. History. Hx Alcohol Use: Yes. Hx Substance Use : Yes (K2). Hx Substance Use Treatment: Yes ([facility]). - Substances Abused. Alcohol. Route: Oral. Frequency: Daily. Amount used: VODKA- 2 PINTS. Age of first use: 9. Date of Last Use: 09/23/17 Medical History: Asthma, COPD, HTN, Hypercholestarolemia, PCP abuse history Psychiatric History: Patient reports history of depression, reports taking prior to admission: Trazodone 100mg po qhs. Remeron 15mg po qhs. Prozac 1omg poqd Physical/Sexual Abuse/Trauma History: Denies Additional Comment: Trazodone 100mg po qhs. Remeron 15mg po qhs. Prozac 1omg poqd Mental Status Exam - Mental Status Exam Alert and Oriented to: Person Cognitive Function: Fair Patient Appearance: Unkempt Mood: Sad Affect: Flat Patient Behavior: Sedated Speech Pattern: Delayed Voice Loudness: Mildly Soft/Quiet Thought Process: Circumstantial Thought Disorder: Being Controlled Hallucinations: Denies Suicidal Ideation: Denies Homicidal Ideation: Denies Insight/Judgement: Fair Sleep: Difficulty falling asleep Appetite: Fair Muscle strength/Tone: Mild Hypotonicity Gait/Station: Shuffling Additional Comments: Trazodone 100mg po qhs. Remeron 15mg po qhs. Prozac 1omg poqd Psychiatric Findings - Problem List ([place] 1, 2,3) (1) Alcohol dependence with uncomplicated withdrawal Current Visit: Yes Status: Chronic (2) COPD (chronic obstructive pulmonary disease) Current Visit: Yes Status: Chronic Qualifiers: COPD type: emphysema Emphysema type: other Qualified Code(s): J43.8 - Other emphysema (3) HTN (hypertension) Current Visit: Yes Status: Chronic Qualifiers: Hypertension type: essential hypertension Qualified Code(s): I10 - Essential (primary) hypertension (4) Hypercholesteremia Current Visit: Yes Status: Chronic (5) Nicotine dependence Current Visit: Yes Status: Chronic Qualifiers: Nicotine product type: cigarettes Substance use status: in withdrawal Qualified Code(s): F17.213 - Nicotine dependence, cigarettes, with withdrawal (6) PCP (phencyclidine) abuse Current Visit: Yes Status: Chronic (7) Alcohol dependence Current Visit: No Status: Acute (8) Alcohol dependence, episodic drinking behavior Current Visit: No Status: Acute (9) Cocaine dependence Current Visit: No Status: Acute Qualifiers: Substance use status: uncomplicated Qualified Code(s): F14.20 - Cocaine dependence, uncomplicated (10) Substance induced mood disorder Current Visit: No Status: Acute (11) Substance-induced sleep disorder Current Visit: No Status: Acute (12) Asthma Current Visit: No Status: Chronic Qualifiers: Asthma severity: mild intermittent Asthma complication type: uncomplicated Qualified Code(s): J45.20 - Mild intermittent asthma, uncomplicated (13) Depressive disorder Current Visit: No Status: Chronic
[2017-09-24 10:08] LABS: HEMOGLOBIN 9.8 GM/dL (11.7-16.9); MCH 24.5 pg (25.7-33.7); RDW 17.4 % (11.9-15.9); WHITE BLOOD COUNT 4.7 K/mm3 (4.0-10.0)
[2017-09-24 10:11] LABS: HEMATOCRIT 30.4 % (35.4-49); MCHC 32.2 g/dl (32.0-35.9); MEAN PLT VOLUME 8.6 fl (7.5-11.1); PLATELET COUNT 211 K/MM3 (134-434)
[2017-09-24 10:26] LABS: CHLORIDE 106 mmol/L (98-107); POTASSIUM 4.4 mmol/L (3.5-5.1); SODIUM 142 mmol/L (136-145)
[2017-09-24 10:43] LABS: ALK PHOS 67 U/L (45-117); ANION GAP 9 (8-16); BILIRUBIN,TOTAL 0.3 mg/dL (0.2-1.0); BLOOD UREA NITROGEN 45 mg/dL (7-18); CALCIUM 7.8 mg/dL (8.5-10.1); CO2 27 mmol/L (21-32); CREATININE 2.9 mg/dL (0.7-1.3); GLUCOSE,RANDOM 81 mg/dL (74-106); SGOT/AST 18 U/L (15-37); SGPT/ALT 21 U/L (12-78); TOT PROT 6.7 g/dl (6.4-8.2)
[2017-09-24] MEDS: amLODIPine BESYLATE 10 MG TABLET (FP) PO SCH (10:59)
[2017-09-24] MEDS: ASPIRIN 81 MG CHEWABLE TABLETS PO SCH (10:59)
[2017-09-24] MEDS: PRENATAL VITAMINS W/ FOLIC ACID TABLET (FP) PO SCH (11:00)
[2017-09-24] MEDS: FLUoxetine HCL 10 MG CAPSULE (FP) PO SCH (11:00)
[2017-09-24] MEDS: NICOTINE 14 MG/24 HOURS TOPICAL PATCH TD SCH (11:15)
--- NOTE | 2017-09-24 11:32 | PN ---
[facility] CIWA - CIWA Score Nausea/Vomitin-Mild Nausea/No Vomiting Muscle Tremors: 1-None Visible, but [place] Anxiety: 1-Mildly Anxious Agitation: 0-Normal Activity Paroxysmal Sweats: No Perspiration Orientation: 0-Oriented Tacttile Disturbances: 0-None Auditory Disturbances: 0-None Visual Disturbances: 0-None Headache: 0-None Present CIWA-Ar Total Score: 3 S COWS - Scale Resting Pulse: 0= [place] 80 or Below Sweatin= No chills or Flushing Restless Observation: 0= Sits Still Pupil Size: 0= Normal to Room Light Bone or Joint Aches: 0= None Runny Nose/ Eye Tearin= None GI Upset > 30mins: 1= Stomach Cramp Tremor Observation of Outstretched Hands: 0= None Yawning Observation: 0= None Anxiety or Irritability: 1=Feels Anxious/Irritable Goose Flesh Skin: 0=Smooth Skin COWS Score: 2 BHS Progress Note (SOAP) Subjective: PATIENT C/O MILD ANXIETY, CHILLS AND MILD TREMORS. DENIES CP, SOB AND DIZZINESS. Objective: 09/24/17 11:30 Laboratory Tests 09/24/17 09/24/17 07:00 07:00 WBC 4.7 RBC 4.00 Hgb 9.8 L D Hct 30.4 L D MCV 76.0 L MCH 24.5 L MCHC 32.2 RDW 17.4 H Plt Count 211 MPV 8.6 Sodium 142 Potassium 4.4 Chloride 106 Carbon Dioxide 27 Anion Gap 9 BUN 45 H D Creatinine 2.9 H D Creat Clearance w eGFR 22.09 Random Glucose 81 D Calcium 7.8 L Total Bilirubin 0.3 D AST 18 D ALT 21 Alkaline Phosphatase 67 D Total Protein 6.7 Albumin 3.0 L Vital Signs Temperature 98.9 F 09/24/17 10:02 Pulse Rate 58 L 09/24/17 10:02 Respiratory Rate 18 09/24/17 10:02 Blood Pressure 119/80 09/24/17 10:02 O2 Sat by Pulse Oximetry (%) OBJ: GENERAL: ALERT AND ORIENTED X 3. IN NAD SKIN: WARM AND MOIST GI: SOFT, BS+, NT EXT: NO EDEMA, MILD TREMORS FELT PSYCH: +ANXIETY Assessment: 09/24/17 11:32 ETOH WITHDRAWAL SYNDROME WITHDRAWAL SYNDROME Plan: CONTINUE DETOX MEDICALLY STABLE ENCOURAGE ORAL FLUIDS CONTINUE TO MONITOR CLINICALLY
--- NOTE | 2017-09-24 12:00 | EKG ---
Test Reason : Blood Pressure : / mmHG Vent. Rate : 051 BPM Atrial Rate : 051 BPM P-R Int : 160 ms QRS Dur : 128 ms QT Int : 482 ms P-R-T Axes : 079 047 061 degrees QTc Int : 444 ms SINUS BRADYCARDIA NON-SPECIFIC INTRA-VENTRICULAR CONDUCTION BLOCK ABNORMAL ECG WHEN COMPARED WITH ECG OF 27-DEC-2016 06:31, CRITERIA FOR ANTEROSEPTAL INFARCT ARE NO LONGER PRESENT NONSPECIFIC T WAVE ABNORMALITY NO LONGER EVIDENT IN LATERAL LEADS Confirmed by VITALY JAIN MD ([id number]) on 09/24/2017 12:00:25 PM Referred By: Confirmed By:VITALY JAIN MD
[2017-09-24] MEDS: traZODone HCL 100 MG TABLET (FP) PO SCH (22:27)
[2017-09-24] MEDS: MIRTAZAPINE 15 MG TABLET (FP) PO SCH (22:27)
[2017-09-25] MEDS: chlordiazePOXIDE HCL 25 MG CAPSULE PO SCH ×3 (06:11→17:50)
[2017-09-25] MEDS: FERROUS SO4 325 MG TABLET (FP) PO SCH ×3 (07:07→17:50)
[2017-09-25] MEDS: ASPIRIN 81 MG CHEWABLE TABLETS PO SCH (10:48)
[2017-09-25] MEDS: PRENATAL VITAMINS W/ FOLIC ACID TABLET (FP) PO SCH (10:48)
[2017-09-25] MEDS: FLUoxetine HCL 10 MG CAPSULE (FP) PO SCH (10:48)
[2017-09-25] MEDS: amLODIPine BESYLATE 10 MG TABLET (FP) PO SCH (10:48)
[2017-09-25] MEDS: NICOTINE 14 MG/24 HOURS TOPICAL PATCH TD SCH (10:49)
--- NOTE | 2017-09-25 14:15 | PN ---
[facility] CIWA - CIWA Score Nausea/Vomitin-No Nausea/No Vomiting Muscle Tremors: None Anxiety: 0-No Anxiety, at Ease Agitation: 0-Normal Activity Paroxysmal Sweats: No Perspiration Orientation: 0-Oriented Tacttile Disturbances: 0-None Auditory Disturbances: 0-None Visual Disturbances: 0-None Headache: 0-None Present CIWA-Ar Total Score: 0 BHS Progress Note (SOAP) Subjective: Pt laying in bed, has no complaints Objective: 09/25/17 14:17 CBCD WBC 4.7 K/mm3 (4.0-10.0) 09/24/17 07:00 RBC 4.00 M/mm3 (4.00-5.60) 09/24/17 07:00 Hgb 9.8 GM/dL (11.7-16.9) L D 09/24/17 07:00 Hct 30.4 % (35.4-49) L D 09/24/17 07:00 MCV 76.0 fl (80-96) L 09/24/17 07:00 MCHC 32.2 g/dl (32.0-35.9) 09/24/17 07:00 RDW 17.4 % (11.9-15.9) H 09/24/17 07:00 Plt Count 211 K/MM3 (134-434) 09/24/17 07:00 MPV 8.6 fl (7.5-11.1) 09/24/17 07:00 CMP Sodium 142 mmol/L (136-145) 09/24/17 07:00 Potassium 4.4 mmol/L (3.5-5.1) 09/24/17 07:00 Chloride 106 mmol/L (98-107) 09/24/17 07:00 Carbon Dioxide 27 mmol/L (21-32) 09/24/17 07:00 Anion Gap 9 (8-16) 09/24/17 07:00 BUN 45 mg/dL (7-18) H D 09/24/17 07:00 Creatinine 2.9 mg/dL (0.7-1.3) H D 09/24/17 07:00 Creat Clearance w eGFR 22.09 (>60) 09/24/17 07:00 Random Glucose 81 mg/dL (74-106) D 09/24/17 07:00 Calcium 7.8 mg/dL (8.5-10.1) L 09/24/17 07:00 Total Bilirubin 0.3 mg/dL (0.2-1.0) D 09/24/17 07:00 AST 18 U/L (15-37) D 09/24/17 07:00 ALT 21 U/L (12-78) 09/24/17 07:00 Alkaline Phosphatase 67 U/L (45-117) D 09/24/17 07:00 Total Protein 6.7 g/dl (6.4-8.2) 09/24/17 07:00 Albumin 3.0 g/dl (3.4-5.0) L 09/24/17 07:00 alert and oriented X 3 Assessment: 09/25/17 14:25 Alcohol detox Anemia Renal insufficiency HTN high cholesterol Plan: Continue alcohol detox f/u with PCP re renal disease, HTN, high cholesterol, anemia
[2017-09-25] MEDS: ATORVASTATIN CA 40 MG TABLET (FP) PO SCH (22:49)
[2017-09-25] MEDS: traZODone HCL 100 MG TABLET (FP) PO SCH (22:49)
[2017-09-25] MEDS: THIAMINE HCL 100 MG TABLET (FP) PO SCH (22:49)
[2017-09-25] MEDS: chlordiazePOXIDE 5 MG CAPSULE PO SCH (22:49)
[2017-09-25] MEDS: MIRTAZAPINE 15 MG TABLET (FP) PO SCH (22:49)
[2017-09-26] MEDS: chlordiazePOXIDE 5 MG CAPSULE PO SCH ×3 (05:28→18:30)
[2017-09-26] MEDS: FERROUS SO4 325 MG TABLET (FP) PO SCH ×3 (07:51→18:31)
[2017-09-26] MEDS: ASPIRIN 81 MG CHEWABLE TABLETS PO SCH (10:27)
[2017-09-26] MEDS: NICOTINE 14 MG/24 HOURS TOPICAL PATCH TD SCH (10:28)
[2017-09-26] MEDS: amLODIPine BESYLATE 10 MG TABLET (FP) PO SCH (10:28)
[2017-09-26] MEDS: FLUoxetine HCL 10 MG CAPSULE (FP) PO SCH (10:28)
[2017-09-26] MEDS: PRENATAL VITAMINS W/ FOLIC ACID TABLET (FP) PO SCH (10:28)
--- NOTE | 2017-09-26 11:00 | PN ---
S Progress Note (SOAP) Subjective: Generalized pain and tremors, anxiety Objective: 09/26/17 10:59 Vital Signs 09/26/17 09/26/17 09/26/17 03:30 06:26 10:33 Temperature 96.8 F L 96.6 F L Pulse Rate 55 L 77 Respiratory 18 18 18 Rate Blood Pressure 112/58 146/94 Laboratory Last Values WBC 4.7 K/mm3 (4.0-10.0) 09/24/17 07:00 RBC 4.00 M/mm3 (4.00-5.60) 09/24/17 07:00 Hgb 9.8 GM/dL (11.7-16.9) L D 09/24/17 07:00 Hct 30.4 % (35.4-49) L D 09/24/17 07:00 MCV 76.0 fl (80-96) L 09/24/17 07:00 MCH 24.5 pg (25.7-33.7) L 09/24/17 07:00 MCHC 32.2 g/dl (32.0-35.9) 09/24/17 07:00 RDW 17.4 % (11.9-15.9) H 09/24/17 07:00 Plt Count 211 K/MM3 (134-434) 09/24/17 07:00 MPV 8.6 fl (7.5-11.1) 09/24/17 07:00 Sodium 142 mmol/L (136-145) 09/24/17 07:00 Potassium 4.4 mmol/L (3.5-5.1) 09/24/17 07:00 Chloride 106 mmol/L (98-107) 09/24/17 07:00 Carbon Dioxide 27 mmol/L (21-32) 09/24/17 07:00 Anion Gap 9 (8-16) 09/24/17 07:00 BUN 45 mg/dL (7-18) H D 09/24/17 07:00 Creatinine 2.9 mg/dL (0.7-1.3) H D 09/24/17 07:00 Creat Clearance w eGFR 22.09 (>60) 09/24/17 07:00 Random Glucose 81 mg/dL (74-106) D 09/24/17 07:00 Calcium 7.8 mg/dL (8.5-10.1) L 09/24/17 07:00 Total Bilirubin 0.3 mg/dL (0.2-1.0) D 09/24/17 07:00 AST 18 U/L (15-37) D 09/24/17 07:00 ALT 21 U/L (12-78) 09/24/17 07:00 Alkaline Phosphatase 67 U/L (45-117) D 09/24/17 07:00 Total Protein 6.7 g/dl (6.4-8.2) 09/24/17 07:00 Albumin 3.0 g/dl (3.4-5.0) L 09/24/17 07:00 RPR Titer Nonreactive (NONREACTIVE) 09/24/17 07:00 Labs noted-elevated BUN/Cr Assessment: 09/26/17 11:00 Withdrawal sx Plan: Continue detox Encourage oral fluid intake
[2017-09-26 13:26] LABS: URINE APPEARANCE CLEAR; URINE BILIRUBIN NEGATIVE (<2.0 mg/dL); URINE COLOR LTYELLOW; URINE GLUCOSE (UA) NEGATIVE (NEGATIVE); URINE KETONE NEGATIVE (NEGATIVE); URINE LEUK ESTERASE NEGATIVE (NEGATIVE); URINE NITRITE NEGATIVE (NEGATIVE); URINE UROBILINOGEN NEGATIVE mg/dL (0.2-1.0)
[2017-09-26 13:36] LABS: URINE PROTEIN 1+ (NEGATIVE)
[2017-09-26 13:40] LABS: EPI CELLS RARE /HPF (FEW)
[2017-09-27] MEDS: ATORVASTATIN CA 40 MG TABLET (FP) PO SCH (00:02)
[2017-09-27] MEDS: MIRTAZAPINE 15 MG TABLET (FP) PO SCH (00:02)
[2017-09-27] MEDS: traZODone HCL 100 MG TABLET (FP) PO SCH (00:02)
[2017-09-27] MEDS: chlordiazePOXIDE HCL 10 MG CAPSULE PO SCH ×3 (00:02→11:26)
[2017-09-27] MEDS: THIAMINE HCL 100 MG TABLET (FP) PO SCH (00:03)
[2017-09-27] MEDS: FERROUS SO4 325 MG TABLET (FP) PO SCH (07:24)
[2017-09-27 10:20] VITALS: BP 127/71; PULSE 60; TEMP 97.7
--- NOTE | 2017-09-27 11:07 | DS ---
[facility] Detox Discharge Summary Admission Date: 09/23/17 Discharge Date: 09/27/17 - History Present History: Alcohol Dependence Additional Comments: 62 years old male admitted 09/23/17 for alcohol withdrawal sx completed alcohol detox regimen tolerated well denies alcohol withdrawal sx ambulate with cane alert oriented x 3 no acute distress aftercare [facility] - Physical Exam Results Vital Signs: Vital Signs Temperature 97.7 F 09/27/17 10:19 Pulse Rate 60 09/27/17 10:19 Respiratory Rate 18 09/27/17 10:19 Blood Pressure 127/71 09/27/17 10:19 O2 Sat by Pulse Oximetry (%) Pertinent Admission Physical Exam Findings: alcohol withdrawal sx Vital Signs Temperature 97.7 F 09/27/17 10:19 Pulse Rate 60 09/27/17 10:19 Respiratory Rate 18 09/27/17 10:19 Blood Pressure 127/71 09/27/17 10:19 O2 Sat by Pulse Oximetry (%) Laboratory Last Values WBC 4.7 K/mm3 (4.0-10.0) 09/24/17 07:00 RBC 4.00 M/mm3 (4.00-5.60) 09/24/17 07:00 Hgb 9.8 GM/dL (11.7-16.9) L D 09/24/17 07:00 Hct 30.4 % (35.4-49) L D 09/24/17 07:00 MCV 76.0 fl (80-96) L 09/24/17 07:00 MCH 24.5 pg (25.7-33.7) L 09/24/17 07:00 MCHC 32.2 g/dl (32.0-35.9) 09/24/17 07:00 RDW 17.4 % (11.9-15.9) H 09/24/17 07:00 Plt Count 211 K/MM3 (134-434) 09/24/17 07:00 MPV 8.6 fl (7.5-11.1) 09/24/17 07:00 Sodium 142 mmol/L (136-145) 09/24/17 07:00 Potassium 4.4 mmol/L (3.5-5.1) 09/24/17 07:00 Chloride 106 mmol/L (98-107) 09/24/17 07:00 Carbon Dioxide 27 mmol/L (21-32) 09/24/17 07:00 Anion Gap 9 (8-16) 09/24/17 07:00 BUN 45 mg/dL (7-18) H D 09/24/17 07:00 Creatinine 2.9 mg/dL (0.7-1.3) H D 09/24/17 07:00 Creat Clearance w eGFR 22.09 (>60) 09/24/17 07:00 Random Glucose 81 mg/dL (74-106) D 09/24/17 07:00 Calcium 7.8 mg/dL (8.5-10.1) L 09/24/17 07:00 Total Bilirubin 0.3 mg/dL (0.2-1.0) D 09/24/17 07:00 AST 18 U/L (15-37) D 09/24/17 07:00 ALT 21 U/L (12-78) 09/24/17 07:00 Alkaline Phosphatase 67 U/L (45-117) D 09/24/17 07:00 Total Protein 6.7 g/dl (6.4-8.2) 09/24/17 07:00 Albumin 3.0 g/dl (3.4-5.0) L 09/24/17 07:00 Urine Color Ltyellow 09/26/17 09:21 Urine Appearance Clear 09/26/17 09:21 Urine pH 6.0 (5.0-8.0) 09/26/17 09:21 Ur Specific [place] 1.014 (1.001-1.035) 09/26/17 09:21 Urine Protein 1+ (NEGATIVE) H 09/26/17 09:21 Urine Glucose (UA) Negative (NEGATIVE) 09/26/17 09:21 Urine Ketones Negative (NEGATIVE) 09/26/17 09:21 Urine Blood Negative (NEGATIVE) 09/26/17 09:21 Urine Nitrite Negative (NEGATIVE) 09/26/17 09:21 Urine Bilirubin Negative (<2.0 mg/dL) 09/26/17 09:21 Urine Urobilinogen Negative mg/dL (0.2-1.0) 09/26/17 09:21 Ur Leukocyte Esterase Negative (NEGATIVE) 09/26/17 09:21 Urine WBC (Auto) 1 /hpf (3-5) 09/26/17 09:21 Urine RBC (Auto) None /hpf (0-3) 09/26/17 09:21 Ur Epithelial Cells Rare /HPF (FEW) 09/26/17 09:21 RPR Titer Nonreactive (NONREACTIVE) 09/24/17 07:00 lab noted renal insufficiency - Treatment Hospital Course: Detox Protocol Followed, Detoxed Safely, Responded well, Discharged Condition Good, Rehab Referral Accepted Patient has Accepted a Rehab Referral to: [facility] - Medication Discharge Medications: Ambulatory Orders Folic Acid - 1 mg PO DAILY 05/09/16 Thiamine HCl [Vitamin B-1] 100 mg PO DAILY 05/09/16 Aspirin [ASA -] 81 mg PO DAILY #30 tab 01/14/17 Ferrous Sulfate [Feosol] 325 mg PO TIDCM #90 tab 01/14/17 Fluoxetine HCl [Prozac -] 10 mg PO DAILY #30 tab 09/24/17 Mirtazapine [Remeron -] 15 mg PO HS #30 tablet 09/24/17 traZODone HCL [Desyrel -] 100 mg PO HS #30 tablet 09/24/17 traZODone HCL [Desyrel -] 100 mg PO HS #30 tablet 09/24/17 Albuterol Sulfate Inhaler - [Ventolin HFA Inhaler -] 2 inh PO Q4H PRN #1 inh Amlodipine Besylate [Norvasc -] 10 mg PO DAILY #30 tablet 09/27/17 Atorvastatin Ca [Lipitor] 40 mg PO HS #30 tab 09/27/17 - Diagnosis (1) Alcohol dependence with uncomplicated withdrawal Current Visit: Yes Status: Acute (2) COPD (chronic obstructive pulmonary disease) Current Visit: Yes Status: Chronic Qualifiers: COPD type: emphysema Emphysema type: other Qualified Code(s): J43.8 - Other emphysema (3) HTN (hypertension) Current Visit: Yes Status: Chronic Qualifiers: Hypertension type: essential hypertension Qualified Code(s): I10 - Essential (primary) hypertension (4) Hypercholesteremia Current Visit: Yes Status: Chronic (5) Nicotine dependence Current Visit: Yes Status: Acute Qualifiers: Nicotine product type: cigarettes Substance use status: in withdrawal Qualified Code(s): F17.213 - Nicotine dependence, cigarettes, with withdrawal (6) Asthma Current Visit: Yes Status: Chronic Qualifiers: Asthma severity: mild Asthma persistence: intermittent Asthma complication type: with status asthmaticus Qualified Code(s): J45.22 - Mild intermittent asthma with status asthmaticus - AMA Did Patient Leave Against Medical Advice: No
[2017-09-27] MEDS: PRENATAL VITAMINS W/ FOLIC ACID TABLET (FP) PO SCH (11:26)
[2017-09-27] MEDS: amLODIPine BESYLATE 10 MG TABLET (FP) PO SCH (11:26)
[2017-09-27] MEDS: NICOTINE 14 MG/24 HOURS TOPICAL PATCH TD SCH (11:26)
[2017-09-27] MEDS: ASPIRIN 81 MG CHEWABLE TABLETS PO SCH (11:26)
[2017-09-27] MEDS: FLUoxetine HCL 10 MG CAPSULE (FP) PO SCH (11:26)
--- NOTE | 2017-09-28 22:19 | EKG ---
Test Reason : Blood Pressure : / mmHG Vent. Rate : 063 BPM Atrial Rate : 063 BPM P-R Int : 154 ms QRS Dur : 122 ms QT Int : 442 ms P-R-T Axes : 071 -06 058 degrees QTc Int : 452 ms NORMAL SINUS RHYTHM NON-SPECIFIC INTRA-VENTRICULAR CONDUCTION DELAY BORDERLINE ECG WHEN COMPARED WITH ECG OF 23-SEP-2017 23:40, NO SIGNIFICANT CHANGE WAS FOUND Confirmed by INDIRA STEPHENS MD ([id number]) on 09/28/2017 10:19:33 PM Referred By: Confirmed By:INDIRA STEPHENS MD
== END 2017-09-27 10:25 | disposition home or self-care (01) | DRG 775 ==
LOC: YASAS 17:48 → Y6N 22:31
PROVIDERS: ADMIT Family Medicine Addiction Medicine; ATTEND Family Medicine Addiction Medicine
PROC: HZ2ZZZZ Detoxification Services for Substance Abuse Treatment (ICD-10-PCS; principal; 2017-09-23)
DX: F10.230 Alcohol dependence with withdrawal, uncomplicated (principal); F16.10 Hallucinogen abuse, uncomplicated; F17.210 Nicotine dependence, cigarettes, uncomplicated; F19.24 Other psychoactive substance dependence with psychoactive substance-induced mood disorder; F19.282 Other psychoactive substance dependence with psychoactive substance-induced sleep disorder; F32.9 Major depressive disorder, single episode, unspecified; I10 Essential (primary) hypertension; J43.8 Other emphysema; J45.22 Mild intermittent asthma with status asthmaticus; E78.00 Pure hypercholesterolemia, unspecified; D64.9 Anemia, unspecified; N28.9 Disorder of kidney and ureter, unspecified; Z87.438 Personal history of other diseases of male genital organs
CPT/HCPCS: 36415; 80053; 81003; 81015; 85027; 86593; 93005; 93010